=== PATIENT | male | born 1975 | race Caucasian/White ===

== ENCOUNTER 2019-11-03 07:48 | Outpatient (RCR) | payer MEDICAID, SELFPAY | END 2019-11-10 00:01 | LOC: WOUND 07:48 | PROVIDERS: Family Provider Nurse Practitioner; Visit Provider Thoracic Surgery (Cardiothoracic Vascular Surgery) | DX: E11.621 Type 2 diabetes mellitus with foot ulcer (principal); L97.522 Non-pressure chronic ulcer of other part of left foot with fat layer exposed ==

== ENCOUNTER 2019-11-13 05:30 | Day surgery (SDC) | payer MEDICAID, SELFPAY ==
[2019-11-12 16:57] VITALS: BMI 31.4
[2019-11-12 17:11] VITALS: BMI 29.2
[2019-11-13] VITALS (9 sets, daily range): BP systolic 120–164; BP diastolic 90–108; PULSE 88–94; RESP 14–20; TEMP 36.6–36.7; O2SAT 99–100
--- NOTE | 2019-11-13 07:15 | SUR.OPER ---
wasted all 2% lidocaine 20ml on sterile field
--- NOTE | 2019-11-13 07:33 | PM.OP ---
Operative Report Post-Operative Note: Date of procedure: 11/13/19 Preop Diagnosis: Left diabetic foot ulcer Post-op diagnosis: same Post-op Findings: Left diabetic foot wound all the way to the fascia Procedure Done: Debridement of left diabetic foot ulcer and injection of AmnioFix Implants: Injection of Amniofix Specimens removed/disposition: None Estimated blood loss (mL): 3 Complications: No immediate complication Findings: Left diabetic foot ulcer Condition: stable Disposition: same day Operative Report: Brief History: This is a pleasant 44 years old gentleman with complicated diabetic foot ulcer, well-known to me from wound care center, patient had plateaued his healing rate, so at that point I did international student counselor the patient to bring him to the OR for surgical debridement and injection of AmnioFix. Patient agreed to proceed accordingly Informed consent per chart Procedure: Left lower extremity ulcer After identifying the patient holding area, the left ower extremity was marked before the procedure by myself, patient was then taken to the operative suite, was placed in supine position, IV antibiotics were given per protocol,prep and drape of the left lower extremity was done under the usual sterile technique. Time-out was done verifying the patient's name/date of /planned procedure and destination after the procedure, all were in agreement. Started by excising the unhealthy necrotic indurated tissues of the wound all the way down to the subcutaneous tissues, and muscle layer of the ulcer, I was able excise all unhealthy tissues left lower extremity ulcer w necrotic floor Pre-debridement measurements 0.6 x 0.2 x 0.2 cm Post debridement measurements 0.9 x 0.3 x 0[address] to the fascia layer Sharp Debridement all the way to the healthier fascial layer Appropriate hemostasis followed by injection of Amniofix, Adaptic was then applied followed by Steri-Strips then dry gauze ABDs, Kerlix and Ronen wrap, Industry representatives was available for this. Patient tolerated the procedure well, count of instruments,needles and sponges were completed at the end of the procedure. Patient was then taken to the recovery area in stable condition. I was present for the whole entire procedure Furnace Roaster Tonny Circulating Nurse Iman and Conchita Huffman Coding Level of Care Code Acute License Registration Examiner for [facility] Barbie
--- NOTE | 2019-11-13 08:29 | P.OP_ITS ---
Operative Report Post-Operative Note: Date of procedure: 11/13/19 Coding Level of Care Code Acute Double Surface Operator for Jameson Valentin
== END 2019-11-13 07:57 | disposition home or self-care (01) ==
PROVIDERS: Family Provider Nurse Practitioner; PCP Nurse Practitioner; Visit Provider Surgery
PROC: (CPT 11043; principal; 2019-11-13 07:00)
DX: E11.621 Type 2 diabetes mellitus with foot ulcer (principal); S91.302A Unspecified open wound, left foot, initial encounter; X58.XXXA Exposure to other specified factors, initial encounter; F17.210 Nicotine dependence, cigarettes, uncomplicated; E11.42 Type 2 diabetes mellitus with diabetic polyneuropathy
CPT/HCPCS: 11043; 96365; J0690

== ENCOUNTER 2019-11-27 07:56 | Outpatient (RCR) | payer MEDICAID, SELFPAY | END 2019-12-11 23:59 | disposition home or self-care (01) | LOC: WOUND 07:56 | PROVIDERS: Family Provider Nurse Practitioner; PCP Nurse Practitioner; Visit Provider Surgery | DX: E11.621 Type 2 diabetes mellitus with foot ulcer (principal); L97.522 Non-pressure chronic ulcer of other part of left foot with fat layer exposed; I96 Gangrene, not elsewhere classified | CPT/HCPCS: 11042; 99212 ==

== ENCOUNTER → 2020-01-15 09:39 | Outpatient (BNVA) | payer MEDICAID, SELFPAY | PROVIDERS: Family Provider Nurse Practitioner; PCP Nurse Practitioner; Visit Provider Nurse Practitioner | DX: E13.621 Other specified diabetes mellitus with foot ulcer (principal); F17.200 Nicotine dependence, unspecified, uncomplicated; L97.509 Non-pressure chronic ulcer of other part of unspecified foot with unspecified severity | CPT/HCPCS: 80048; 82044; 83036 ==

== ENCOUNTER 2020-02-11 09:08 | Outpatient (CLI) | payer MEDICAID, SELFPAY ==
--- NOTE | 2020-02-11 09:19 | XR_ITS ---
WS: [id number] FOOT LEFT TECHNIQUE: 3 views of the left foot CLINICAL INFORMATION: PAIN, REDNESS, NON HEALING ULCER COMPARISON: July 20, 2019 FINDINGS: Mild soft tissue edema left great toe. Small amount of lucency and irregularity distal phalanx tuft. This may represent a tiny amount of developing osteomyelitis. Previously described osteolysis involvi ng the distal pharynx has improved since July 20, 2019. Achilles calcaneal spurring. XR/XR foot LT min 3V* [id number] IMPRESSION: Soft tissue edema first toe with a tiny amount of bony irregularity distal tuft . This may represent a small amount of developing osteomyelitis and can be furt her evaluated with MRI.
== END 2020-02-11 09:09 | disposition home or self-care (01) ==
LOC: RADWPI 09:15
PROVIDERS: Family Provider Nurse Practitioner; PCP Nurse Practitioner; Visit Provider Nurse Practitioner Family
DX: L81.9 Disorder of pigmentation, unspecified (principal); R60.9 Edema, unspecified; E11.621 Type 2 diabetes mellitus with foot ulcer; L97.522 Non-pressure chronic ulcer of other part of left foot with fat layer exposed
CPT/HCPCS: 11042; 73630; G0463

== ENCOUNTER 2020-02-15 17:52 | Outpatient (CLI) | payer MEDICAID, SELFPAY ==
[2020-02-15 18:48] LABS: Hematocrit 40.1 % (42.0-52.0); Hemoglobin 13.8 g/dL (11.7-16.6); Mean Corpuscular HGB Conc 34.4 g/dL (30.0-36.0); Mean Corpuscular Hemoglobin 31.8 pg (28.0-34.0); Mean Corpuscular Volume 92.4 fL (80-94); Mean Platelet Volume 11.7 fL (7.4-10.4); Platelet Count 248 10^3/cmm (130-400); Red Blood Count 4.34 10^6/uL (4.1-5.3); Red Cell Distribution Width 12.3 % (12.1-15.1); White Blood Count 7.1 10^3/uL (4.0-10.0)
[2020-02-15 19:59] LABS: Alanine Aminotransferase 18 U/L (0-41); Alkaline Phosphatase 75 IU/L (40-130); Anion Gap 16.4 (5-19); Aspartate Amino Transferase 20 U/L (0-40); Blood Urea Nitrogen 14 mg/dL (6-20); C Reactive Protein 9.9 mg/L (0.0-4.9); Calcium 9.7 mg/dL (8.5-10.5); Carbon Dioxide 25 mmol/L (22-29); Chloride 101 mmol/L (98-107); Globulin 3.7 g/dL (1.3-4.6); Glucose 107 mg/dL (65-115); Osmolality Calculated 283 mOsm/kg (285-295); Potassium 4.4 mmol/L (3.5-5.1); Sodium 138 mmol/L (136-145); Total Bilirubin 0.2 mg/dL (0.15-1.2); Total Protein 7.7 g/dL (6.6-8.7); Vancomycin Trough 22.8 ug/mL (10-15)
[2020-02-15 20:16] LABS: Absolute Eosinophils 0.1 10^3/cmm (0.0-0.7); Absolute Segmented Neutrophil 4.4 10/cmm (1.6-7.1); Eosinophils 2 %; Lymphocytes 34 %; Monocytes Absolute 0.1 10^3/cmm (0.1-0.6); Segmented Neutrophils 62 %; Total Cells Counted 100 (0-100)
[2020-02-15 20:18] LABS: Platelet Estimate Normal (Normal)
[2020-02-15 20:22] LABS: Erythrocyte Sedimentation Rate 18 mm/hr (0-10)
== END 2020-02-15 17:53 | disposition home or self-care (01) ==
LOC: LAB 17:54
PROVIDERS: Family Provider Nurse Practitioner; PCP Nurse Practitioner; Visit Provider Surgery
DX: M79.672 Pain in left foot (principal)
CPT/HCPCS: 80053; 80202; 85007; 85027; 85651; 86140

== ENCOUNTER 2020-02-22 18:14 | Outpatient (REF) | payer MEDICAID, SELFPAY | END 2020-02-22 18:15 | disposition home or self-care (01) | LOC: LAB 18:14 | PROVIDERS: Family Provider Nurse Practitioner; PCP Nurse Practitioner; Visit Provider Surgery | DX: M86.9 Osteomyelitis, unspecified (principal) | CPT/HCPCS: 80202; 99214; G0463 ==

== ENCOUNTER 2020-03-07 18:10 | Outpatient (CLI) | payer MEDICAID, SELFPAY ==
[2020-03-07 19:56] LABS: Basophils # 0.1 10^3/uL (0.0-0.1); Basophils % 0.6 %; Eosinophils # 0.4 10^3/uL (0.0-0.8); Eosinophils % 4.3 %; Hematocrit 39.6 % (42.0-52.0); Hemoglobin 13.4 g/dL (11.7-16.6); Lymphocytes # 2.4 10^3/uL (0.8-4.8); Lymphocytes % 29.1 %; Mean Corpuscular HGB Conc 33.8 g/dL (30.0-36.0); Mean Corpuscular Hemoglobin 31.5 pg (28.0-34.0); Mean Corpuscular Volume 93.2 fL (80-94); Mean Platelet Volume 11.6 fL (7.4-10.4); Monocytes # 0.8 10^3/uL (0.2-0.9); Monocytes % 9.1 %; Neutrophils # 4.6 10^3/uL (1.8-7.7); Neutrophils % 56.5 %; Nucleated Red Blood Cells % 0 %; Platelet Count 249 10^3/cmm (130-400); Red Blood Count 4.25 10^6/uL (4.1-5.3); Red Cell Distribution Width 12.4 % (12.1-15.1); White Blood Count 8.2 10^3/uL (4.0-10.0)
[2020-03-07 23:00] LABS: Alanine Aminotransferase 34 U/L (0-41); Albumin Level 3.9 g/dL (3.5-5.2); Alkaline Phosphatase 78 IU/L (40-130); Anion Gap 15.5 (5-19); Aspartate Amino Transferase 21 U/L (0-40); Blood Urea Nitrogen 17 mg/dL (6-20); Calcium 9.7 mg/dL (8.5-10.5); Carbon Dioxide 27 mmol/L (22-29); Chloride 101 mmol/L (98-107); Globulin 3.6 g/dL (1.3-4.6); Glomerular Filtration Rate 123.1 mL/min (90-130); Glucose 175 mg/dL (65-115); Osmolality Calculated 289 mOsm/kg (285-295); Potassium 4.5 mmol/L (3.5-5.1); Sodium 139 mmol/L (136-145); Total Bilirubin 0.2 mg/dL (0.15-1.2); Total Protein 7.5 g/dL (6.6-8.7); Vancomycin Trough 21.4 ug/mL (10-15)
== END 2020-03-07 18:11 | disposition home or self-care (01) ==
LOC: LAB 18:12
PROVIDERS: Family Provider Nurse Practitioner; Visit Provider Surgery
DX: M86.60 Other chronic osteomyelitis, unspecified site (principal)
CPT/HCPCS: 80053; 80202; 85025

== ENCOUNTER 2020-03-10 07:47 | Outpatient (RCR) | payer MEDICAID, SELFPAY ==
--- NOTE | 2020-02-12 08:55 | XR_ITS ---
WS: [id number] PORTABLE CHEST HISTORY: PICC PLACEMENT COMPARISON: 07/30/2019 RIGHT PICC line is been placed with tip in the mid SVC. No complications. Lungs are clear and well expanded. No pleural effusion or pneumothorax. Cardiac size: Normal. Mediastinum/Aorta: Normal mediastinum. No osseous abnormality seen. XR/XR chest 1V portable [id number] IMPRESSION: Satisfactory placement right-sided PICC line.
[2020-02-12 09:26] LABS: Basophils % 0.5 %; Eosinophils # 0.1 10^3/uL (0.0-0.8); Eosinophils % 1.4 %; Hematocrit 40.6 % (42.0-52.0); Hemoglobin 13.9 g/dL (11.7-16.6); Lymphocytes # 1.3 10^3/uL (0.8-4.8); Lymphocytes % 16.2 %; Mean Corpuscular HGB Conc 34.2 g/dL (30.0-36.0); Mean Corpuscular Hemoglobin 31.2 pg (28.0-34.0); Mean Platelet Volume 10.8 fL (7.4-10.4); Monocytes # 0.7 10^3/uL (0.2-0.9); Neutrophils # 5.6 10^3/uL (1.8-7.7); Neutrophils % 72.6 %; Nucleated Red Blood Cells % 0 %; Platelet Count 208 10^3/cmm (130-400); Red Blood Count 4.46 10^6/uL (4.1-5.3); Red Cell Distribution Width 12.3 % (12.1-15.1); White Blood Count 7.8 10^3/uL (4.0-10.0)
[2020-02-12 09:40] LABS: Alanine Aminotransferase 15 U/L (0-41); Albumin Level 3.9 g/dL (3.5-5.2); Alkaline Phosphatase 71 IU/L (40-130); Anion Gap 16.4 (5-19); Aspartate Amino Transferase 15 U/L (0-40); Blood Urea Nitrogen 12 mg/dL (6-20); C Reactive Protein 71.2 mg/L (0.0-4.9); Calcium 9.5 mg/dL (8.5-10.5); Carbon Dioxide 25 mmol/L (22-29); Chloride 99 mmol/L (98-107); Creatinine Clr Calc Pharmacy 148.9893; Glomerular Filtration Rate 105.5 mL/min (90-130); Glucose 184 mg/dL (65-115); Osmolality Calculated 283 mOsm/kg (285-295); Potassium 4.4 mmol/L (3.5-5.1); Sodium 136 mmol/L (136-145); Total Bilirubin 0.4 mg/dL (0.15-1.2); Total Protein 6.9 g/dL (6.6-8.7)
[2020-02-12 09:56] VITALS: BP 127/88; PULSE 90; RESP 18; TEMP 37.3; O2SAT 99; BMI 31.3
[2020-02-12 10:03] LABS: Prealbumin 18.7 mg/dL (20-40)
[2020-02-12 10:24] LABS: Erythrocyte Sedimentation Rate 22 mm/hr (0-10)
--- NOTE | 2020-02-12 11:33 | ECG_ITS ---
Measurements Intervals Deane Rate: 95 P: 114 SD: 149 QRS: 214 QRSD: 99 T: 141 QT: 337 QTc: 424 SINUS RHYTHM ARM LEADS REVERSED [INVERTED P AND QRS IN I] ATYPICAL ECG WARNING: DATA QUALITY MAY AFFECT INTERPRETATION No previous ECG available for comparison Electronically Signed On 02-12-2020 13:42:32 CDT by Cherie Jacobs M.D. [email or web address]
--- NOTE | 2020-02-12 11:33 | XR_ITS ---
WS: [id number] CHEST 2 VIEWS HISTORY: Possible bullous lung disease. COMPARISON: 02/12/2020, 07/30/2019 Lungs: Lungs are hyperinflated. No focal bullous disease is identified. There are no lucencies or cys tic areas seen. No pneumonia. Cardiac size: Normal. Mediastinum/Aorta: Normal mediastinum. Bones: Mild RIGHT convex curvature thoracic spine. RIGHT PICC line remains in good position. XR/XR chest 2V* [id number] IMPRESSION: 1. No bullous lung disease appreciated by radiograph. 2. Right-sided PICC line in good position.
--- NOTE | 2020-02-17 08:42 | USCV_ITS ---
Joe Child Age: 44 Gender: M : 1975 Exam Date: 02/17/2020 09:18 Ordering Phys: Adilene Mg Technologist: Kaye Chawla [place] [facility] [place]: HISTORY: Non healing wound lt foot PROCEDURES: Venous duplex imaging was performed in only the left lower extremity. The following venous structures were evaluated: common femoral vein,, portion of the greater saphenous vein, superficial femoral vein, and the popliteal vein ptv and ssv FINDINGS: No DVT or superficial thrombus noted in any vessel examined No reflux noted in any vessel examined CONCLUSIONS No evidence of DVT in the above-mentioned identifiable veins. No significant venous reflux in the above-mentioned veins on the left side. The venous dimensions and the depth from the surface are as mentioned above Dr Tyrell Sargent MD [facility] (Electronically Signed) Final Date: 17 February 2020 17:20 S
--- NOTE | 2020-02-19 15:37 | USCV_ITS ---
Joe Child Age: 44 Gender: M : 1975 Exam Date: 02/19/2020 15:30 Ordering Phys: Adilene Mg Technologist: Exam Location: [facility] [place] Indication: ULCERS OF LT FOOT RIGHT LEFT Brachial mmHg Brachial 144.00 mmHg Pressure (mmHg) Waveform Pressure (mmHg) Waveform Above Knee 162.00 Below Knee 154.00 TECHNICAL ASSOCIATE 160.00 DPA 152.00 Ankle/Brachial Index 1.11 Pre-Exercise Toe Pressure 112.00 Pre-Exercise Toe/Brachial Index 0.78 FINDINGS Unable to take right brachial due to picc line. Normal resting TAYLOR on the left side Normal resting TBI on the left side Normal PVR waveforms CONCLUSIONS No significant arterial obstruction, based on the above findings, in the left lower extremity Dr Tyrell Sargent MD [facility] (Electronically Signed) Final Date: 19 February 2020 16:53 S
[2020-02-29 20:27] LABS: Alanine Aminotransferase 23 U/L (0-41); Alkaline Phosphatase 72 IU/L (40-130); Anion Gap 21.6 (5-19); Aspartate Amino Transferase 20 U/L (0-40); Blood Urea Nitrogen 19 mg/dL (6-20); Calcium 9.8 mg/dL (8.5-10.5); Carbon Dioxide 26 mmol/L (22-29); Chloride 97 mmol/L (98-107); Globulin 3.6 g/dL (1.3-4.6); Glomerular Filtration Rate 123.1 mL/min (90-130); Glucose 142 mg/dL (65-115); Osmolality Calculated 291 mOsm/kg (285-295); Potassium 3.6 mmol/L (3.5-5.1); Sodium 141 mmol/L (136-145); Total Bilirubin 0.2 mg/dL (0.15-1.2); Total Protein 7.6 g/dL (6.6-8.7); Vancomycin Trough 24.6 ug/mL (10-15)
[2020-02-29 21:02] LABS: Basophils # 0.1 10^3/uL (0.0-0.1); Basophils % 0.9 %; Eosinophils # 0.3 10^3/uL (0.0-0.8); Eosinophils % 3.6 %; Hematocrit 41.8 % (42.0-52.0); Hemoglobin 13.2 g/dL (11.7-16.6); Lymphocytes # 2.5 10^3/uL (0.8-4.8); Lymphocytes % 30.7 %; Mean Corpuscular HGB Conc 31.6 g/dL (30.0-36.0); Mean Corpuscular Hemoglobin 30.3 pg (28.0-34.0); Mean Corpuscular Volume 96.1 fL (80-94); Mean Platelet Volume 11.1 fL (7.4-10.4); Monocytes # 0.6 10^3/uL (0.2-0.9); Monocytes % 7.8 %; Neutrophils # 4.7 10^3/uL (1.8-7.7); Neutrophils % 56.8 %; Nucleated Red Blood Cells % 0 %; Platelet Count 253 10^3/cmm (130-400); Red Blood Count 4.35 10^6/uL (4.1-5.3); Red Cell Distribution Width 12.8 % (12.1-15.1); White Blood Count 8.2 10^3/uL (4.0-10.0)
[2020-03-01 00:15] LABS: Erythrocyte Sedimentation Rate 9 mm/hr (0-10)
== END 2020-03-10 23:59 | disposition home or self-care (01) ==
LOC: WOUND 07:47
PROVIDERS: Emergency Medicine; Family Provider Nurse Practitioner; PCP Nurse Practitioner; Visit Provider Nurse Practitioner Family
DX: R94.31 Abnormal electrocardiogram [ECG] [EKG] (principal); E11.621 Type 2 diabetes mellitus with foot ulcer; L97.522 Non-pressure chronic ulcer of other part of left foot with fat layer exposed; M86.672 Other chronic osteomyelitis, left ankle and foot; Z13.83 Encounter for screening for respiratory disorder NEC; M79.672 Pain in left foot
CPT/HCPCS: 11042; 36569; 71045; 71046; 80053; 80202; 84134; 85025; 85651; 86140; 87070; 87205; 93005; 93922; 93971; 96365; 99183; 99211; G0277; J3370; J7040

== ENCOUNTER 2020-03-11 08:10 | Outpatient (CLI) | payer MEDICAID, SELFPAY | END 2020-03-11 08:11 | disposition home or self-care (01) | LOC: WOUND 08:11 | PROVIDERS: Family Provider Nurse Practitioner; PCP Nurse Practitioner; Visit Provider Surgery | DX: M86.672 Other chronic osteomyelitis, left ankle and foot (principal) | CPT/HCPCS: 99183 ==

== ENCOUNTER 2020-03-14 07:52 | Outpatient (CLI) | payer MEDICAID, SELFPAY | END 2020-03-14 07:53 | disposition home or self-care (01) | LOC: WOUND 13:18 | PROVIDERS: Family Provider Nurse Practitioner; PCP Nurse Practitioner; Visit Provider Emergency Medicine | DX: M86.672 Other chronic osteomyelitis, left ankle and foot (principal) | CPT/HCPCS: 99183 ==

== ENCOUNTER 2020-03-14 20:10 | Outpatient (CLI) | payer MEDICAID, SELFPAY ==
[2020-03-14 22:19] LABS: Basophils # 0.1 10^3/uL (0.0-0.1); Basophils % 0.7 %; Eosinophils # 0.3 10^3/uL (0.0-0.8); Eosinophils % 3.4 %; Hematocrit 39.5 % (42.0-52.0); Hemoglobin 13.3 g/dL (11.7-16.6); Mean Corpuscular HGB Conc 33.7 g/dL (30.0-36.0); Mean Corpuscular Hemoglobin 30.7 pg (28.0-34.0); Mean Corpuscular Volume 91.2 fL (80-94); Mean Platelet Volume 11.6 fL (7.4-10.4); Monocytes # 0.8 10^3/uL (0.2-0.9); Neutrophils # 5.4 10^3/uL (1.8-7.7); Neutrophils % 56.5 %; Nucleated Red Blood Cells % 0 %; Platelet Count 244 10^3/cmm (130-400); Red Blood Count 4.33 10^6/uL (4.1-5.3); White Blood Count 9.5 10^3/uL (4.0-10.0)
[2020-03-14 22:32] LABS: Alanine Aminotransferase 28 U/L (0-41); Albumin Level 3.8 g/dL (3.5-5.2); Alkaline Phosphatase 70 IU/L (40-130); Anion Gap 15.5 (5-19); Blood Urea Nitrogen 18 mg/dL (6-20); Calcium 9.4 mg/dL (8.5-10.5); Carbon Dioxide 27 mmol/L (22-29); Chloride 101 mmol/L (98-107); Globulin 3.5 g/dL (1.3-4.6); Glomerular Filtration Rate 92.1 mL/min (90-130); Glucose 158 mg/dL (65-115); Osmolality Calculated 288 mOsm/kg (285-295); Potassium 4.5 mmol/L (3.5-5.1); Sodium 139 mmol/L (136-145); Total Bilirubin 0.2 mg/dL (0.15-1.2); Total Protein 7.3 g/dL (6.6-8.7); Vancomycin Trough 15.9 ug/mL (10-15)
[2020-03-14 22:53] LABS: Aspartate Amino Transferase 21 U/L (0-40)
== END 2020-03-14 20:11 | disposition home or self-care (01) ==
LOC: LAB 20:12
PROVIDERS: Family Provider Nurse Practitioner; PCP Nurse Practitioner; Visit Provider Surgery
DX: E11.9 Type 2 diabetes mellitus without complications (principal); M86.60 Other chronic osteomyelitis, unspecified site
CPT/HCPCS: 80053; 80202; 85025

== ENCOUNTER 2020-03-15 08:01 | Outpatient (CLI) | payer MEDICAID, SELFPAY | END 2020-03-15 08:02 | disposition home or self-care (01) | LOC: WOUND 08:01 | PROVIDERS: Family Provider Nurse Practitioner; PCP Nurse Practitioner; Visit Provider Thoracic Surgery (Cardiothoracic Vascular Surgery) | DX: M86.672 Other chronic osteomyelitis, left ankle and foot (principal) | CPT/HCPCS: 99183 ==

== ENCOUNTER 2020-03-16 07:48 | Outpatient (CLI) | payer MEDICAID, SELFPAY | END 2020-03-16 07:49 | disposition home or self-care (01) | LOC: WOUND 07:49 | PROVIDERS: Family Provider Nurse Practitioner; PCP Nurse Practitioner; Visit Provider Thoracic Surgery (Cardiothoracic Vascular Surgery) | DX: M86.672 Other chronic osteomyelitis, left ankle and foot (principal) | CPT/HCPCS: 99183 ==

== ENCOUNTER 2020-03-17 07:42 | Outpatient (CLI) | payer MEDICAID, SELFPAY | END 2020-03-17 07:43 | disposition home or self-care (01) | LOC: WOUND 07:42 | PROVIDERS: Family Provider Nurse Practitioner; PCP Nurse Practitioner; Visit Provider Nurse Practitioner Family | DX: M86.672 Other chronic osteomyelitis, left ankle and foot (principal) | CPT/HCPCS: 99183 ==

== ENCOUNTER 2020-03-18 08:09 | Outpatient (CLI) | payer MEDICAID, SELFPAY | END 2020-03-18 08:10 | disposition home or self-care (01) | LOC: WOUND 08:10 | PROVIDERS: Family Provider Nurse Practitioner; PCP Nurse Practitioner; Visit Provider Surgery | DX: M86.672 Other chronic osteomyelitis, left ankle and foot (principal) | CPT/HCPCS: 99183 ==

== ENCOUNTER 2020-03-21 07:50 | Outpatient (RCR) | payer MEDICAID, SELFPAY | END 2020-04-10 23:59 | disposition home or self-care (01) | LOC: WOUND 07:50 | PROVIDERS: Family Provider Nurse Practitioner; PCP Nurse Practitioner; Visit Provider Nurse Practitioner Family | DX: M86.672 Other chronic osteomyelitis, left ankle and foot (principal) | CPT/HCPCS: 99183 ==

== ENCOUNTER 2020-03-21 18:30 | Outpatient (CLI) | payer MEDICAID, SELFPAY ==
[2020-03-21 19:55] LABS: Basophils # 0.1 10^3/uL (0.0-0.1); Basophils % 0.7 %; Eosinophils # 0.3 10^3/uL (0.0-0.8); Eosinophils % 3.2 %; Hematocrit 37.5 % (42.0-52.0); Hemoglobin 12.7 g/dL (11.7-16.6); Lymphocytes # 2.7 10^3/uL (0.8-4.8); Lymphocytes % 30.9 %; Mean Corpuscular HGB Conc 33.9 g/dL (30.0-36.0); Mean Corpuscular Hemoglobin 30.8 pg (28.0-34.0); Mean Platelet Volume 11.5 fL (7.4-10.4); Monocytes # 0.8 10^3/uL (0.2-0.9); Monocytes % 8.8 %; Neutrophils # 4.9 10^3/uL (1.8-7.7); Neutrophils % 56.2 %; Nucleated Red Blood Cells % 0 %; Platelet Count 233 10^3/cmm (130-400); Red Blood Count 4.12 10^6/uL (4.1-5.3); Red Cell Distribution Width 12.1 % (12.1-15.1); White Blood Count 8.6 10^3/uL (4.0-10.0)
[2020-03-22 01:55] LABS: Alanine Aminotransferase 30 U/L (0-41); Albumin Level 4.2 g/dL (3.5-5.2); Alkaline Phosphatase 66 IU/L (40-130); Anion Gap 16.2 (5-19); Aspartate Amino Transferase 19 U/L (0-40); Blood Urea Nitrogen 21 mg/dL (6-20); Calcium 8.8 mg/dL (8.5-10.5); Carbon Dioxide 25 mmol/L (22-29); Chloride 101 mmol/L (98-107); Globulin 2.8 g/dL (1.3-4.6); Glomerular Filtration Rate 105.5 mL/min (90-130); Glucose 165 mg/dL (65-115); Osmolality Calculated 286 mOsm/kg (285-295); Potassium 4.2 mmol/L (3.5-5.1); Sodium 138 mmol/L (136-145); Total Bilirubin 0.2 mg/dL (0.15-1.2); Vancomycin Trough 16.4 ug/mL (10-15)
== END 2020-03-21 18:31 | disposition home or self-care (01) ==
LOC: LAB 18:33
PROVIDERS: PCP Nurse Practitioner; Visit Provider Surgery
DX: E11.9 Type 2 diabetes mellitus without complications (principal); M86.8X7 Other osteomyelitis, ankle and foot
CPT/HCPCS: 80053; 80202; 85025

== ENCOUNTER 2020-03-22 07:45 | Outpatient (CLI) | payer MEDICAID, SELFPAY | END 2020-03-22 07:46 | disposition home or self-care (01) | LOC: WOUND 07:46 | PROVIDERS: PCP Nurse Practitioner; Visit Provider Thoracic Surgery (Cardiothoracic Vascular Surgery) | DX: M86.672 Other chronic osteomyelitis, left ankle and foot (principal) | CPT/HCPCS: 99183 ==

== ENCOUNTER 2020-03-23 08:28 | Outpatient (CLI) | payer MEDICAID, SELFPAY | END 2020-03-23 08:29 | disposition home or self-care (01) | LOC: WOUND 08:29 | PROVIDERS: PCP Nurse Practitioner; Visit Provider Thoracic Surgery (Cardiothoracic Vascular Surgery) | DX: M86.672 Other chronic osteomyelitis, left ankle and foot (principal) | CPT/HCPCS: G0277 ==

== ENCOUNTER 2020-03-24 07:55 | Outpatient (CLI) | payer MEDICAID, SELFPAY | END 2020-03-24 07:56 | disposition home or self-care (01) | LOC: WOUND 07:55 | PROVIDERS: PCP Nurse Practitioner; Visit Provider Nurse Practitioner Family | DX: M86.672 Other chronic osteomyelitis, left ankle and foot (principal) | CPT/HCPCS: 99183 ==

== ENCOUNTER 2020-03-25 07:42 | Outpatient (CLI) | payer MEDICAID, SELFPAY | END 2020-03-25 07:43 | disposition home or self-care (01) | LOC: WOUND 07:42 | PROVIDERS: PCP Nurse Practitioner; Visit Provider Surgery | DX: M86.672 Other chronic osteomyelitis, left ankle and foot (principal) | CPT/HCPCS: 99183 ==

== ENCOUNTER 2020-03-28 07:47 | Outpatient (CLI) | payer MEDICAID, SELFPAY | END 2020-03-28 07:48 | disposition home or self-care (01) | LOC: WOUND 07:48 | PROVIDERS: PCP Nurse Practitioner; Visit Provider Nurse Practitioner Family | DX: M86.672 Other chronic osteomyelitis, left ankle and foot (principal) | CPT/HCPCS: 99183; 99212 ==

== ENCOUNTER 2020-03-29 08:25 | Outpatient (CLI) | payer MEDICAID, SELFPAY | END 2020-03-29 08:26 | disposition home or self-care (01) | LOC: WOUND 08:26 | PROVIDERS: PCP Nurse Practitioner; Visit Provider Thoracic Surgery (Cardiothoracic Vascular Surgery) | DX: M86.672 Other chronic osteomyelitis, left ankle and foot (principal) | CPT/HCPCS: 99183 ==

== ENCOUNTER 2020-03-30 07:56 | Outpatient (CLI) | payer MEDICAID, SELFPAY | END 2020-03-30 07:57 | disposition home or self-care (01) | LOC: WOUND 07:57 | PROVIDERS: PCP Nurse Practitioner; Visit Provider Thoracic Surgery (Cardiothoracic Vascular Surgery) | DX: M86.672 Other chronic osteomyelitis, left ankle and foot (principal) | CPT/HCPCS: 99183 ==

== ENCOUNTER 2020-03-31 07:48 | Outpatient (CLI) | payer MEDICAID, SELFPAY | END 2020-03-31 07:49 | disposition home or self-care (01) | LOC: WOUND 07:49 | PROVIDERS: PCP Nurse Practitioner; Visit Provider Nurse Practitioner Family | DX: M86.672 Other chronic osteomyelitis, left ankle and foot (principal) | CPT/HCPCS: 99183 ==

== ENCOUNTER 2020-04-01 07:58 | Outpatient (RCR) | payer MEDICAID, SELFPAY | END 2020-04-10 23:59 | disposition home or self-care (01) | LOC: WOUND 07:58 | PROVIDERS: PCP Nurse Practitioner; Visit Provider Surgery | DX: M86.672 Other chronic osteomyelitis, left ankle and foot (principal) | CPT/HCPCS: 99183 ==

== ENCOUNTER 2020-04-05 07:58 | Outpatient (CLI) | payer MEDICAID, SELFPAY | END 2020-04-05 07:59 | disposition home or self-care (01) | LOC: WOUND 07:58 | PROVIDERS: PCP Nurse Practitioner; Visit Provider Thoracic Surgery (Cardiothoracic Vascular Surgery) | DX: M86.672 Other chronic osteomyelitis, left ankle and foot (principal) | CPT/HCPCS: 99183 ==

== ENCOUNTER 2020-04-07 08:20 | Outpatient (CLI) | payer MEDICAID, SELFPAY | END 2020-04-07 08:21 | disposition home or self-care (01) | LOC: WOUND 08:20 | PROVIDERS: PCP Nurse Practitioner; Visit Provider Nurse Practitioner Family | DX: M86.672 Other chronic osteomyelitis, left ankle and foot (principal) | CPT/HCPCS: 99183 ==

== ENCOUNTER 2020-04-08 07:50 | Outpatient (CLI) | payer MEDICAID, SELFPAY | END 2020-04-08 07:51 | disposition home or self-care (01) | LOC: WOUND 07:51 | PROVIDERS: PCP Nurse Practitioner; Visit Provider Surgery | DX: M86.672 Other chronic osteomyelitis, left ankle and foot (principal) | CPT/HCPCS: 99183 ==

== ENCOUNTER 2020-04-11 07:44 | Outpatient (CLI) | payer MEDICAID, SELFPAY | END 2020-04-11 07:45 | disposition home or self-care (01) | LOC: WOUND 07:44 | PROVIDERS: Family Provider Nurse Practitioner; PCP Nurse Practitioner; Visit Provider Nurse Practitioner Family | DX: M86.672 Other chronic osteomyelitis, left ankle and foot (principal) | CPT/HCPCS: 99183; 99212 ==

== ENCOUNTER 2020-04-12 07:53 | Outpatient (CLI) | payer MEDICAID, SELFPAY | END 2020-04-12 07:54 | disposition home or self-care (01) | LOC: WOUND 07:53 | PROVIDERS: Family Provider Nurse Practitioner; PCP Nurse Practitioner; Visit Provider Thoracic Surgery (Cardiothoracic Vascular Surgery) | DX: M86.672 Other chronic osteomyelitis, left ankle and foot (principal) | CPT/HCPCS: 99183 ==

== ENCOUNTER 2020-04-13 07:46 | Outpatient (CLI) | payer MEDICAID, SELFPAY | END 2020-04-13 07:47 | disposition home or self-care (01) | LOC: WOUND 07:47 | PROVIDERS: Absent Provider Thoracic Surgery (Cardiothoracic Vascular Surgery); Family Provider Nurse Practitioner; PCP Nurse Practitioner; Visit Provider Thoracic Surgery (Cardiothoracic Vascular Surgery) | DX: M86.672 Other chronic osteomyelitis, left ankle and foot (principal) | CPT/HCPCS: 99183 ==

== ENCOUNTER 2020-04-14 07:47 | Outpatient (CLI) | payer MEDICAID, SELFPAY | END 2020-04-14 07:48 | disposition home or self-care (01) | LOC: WOUND 07:47 | PROVIDERS: Family Provider Nurse Practitioner; PCP Nurse Practitioner; Visit Provider Nurse Practitioner Family | DX: M86.672 Other chronic osteomyelitis, left ankle and foot (principal) | CPT/HCPCS: 99183 ==

== ENCOUNTER 2020-04-15 07:42 | Outpatient (CLI) | payer MEDICAID, SELFPAY | END 2020-04-15 07:43 | disposition home or self-care (01) | LOC: WOUND 07:43 | PROVIDERS: Family Provider Nurse Practitioner; PCP Nurse Practitioner; Visit Provider Surgery | DX: M86.672 Other chronic osteomyelitis, left ankle and foot (principal) | CPT/HCPCS: 99183 ==

== ENCOUNTER 2020-04-18 07:48 | Outpatient (CLI) | payer MEDICAID, SELFPAY | END 2020-04-18 07:49 | disposition home or self-care (01) | LOC: WOUND 07:48 | PROVIDERS: Family Provider Nurse Practitioner; PCP Nurse Practitioner; Visit Provider Nurse Practitioner Family | DX: M86.672 Other chronic osteomyelitis, left ankle and foot (principal) | CPT/HCPCS: 99183 ==

== ENCOUNTER 2020-04-19 07:42 | Outpatient (CLI) | payer MEDICAID, SELFPAY | END 2020-04-19 07:43 | disposition home or self-care (01) | LOC: WOUND 07:42 | PROVIDERS: Family Provider Nurse Practitioner; PCP Nurse Practitioner; Visit Provider Thoracic Surgery (Cardiothoracic Vascular Surgery) | DX: M86.672 Other chronic osteomyelitis, left ankle and foot (principal) | CPT/HCPCS: 99183 ==

== ENCOUNTER 2020-04-20 07:48 | Outpatient (RCR) | payer MEDICAID, SELFPAY | END 2020-05-10 23:59 | disposition home or self-care (01) | LOC: WOUND 07:48 | PROVIDERS: Family Provider Nurse Practitioner; PCP Nurse Practitioner; Visit Provider Thoracic Surgery (Cardiothoracic Vascular Surgery) | DX: M86.672 Other chronic osteomyelitis, left ankle and foot (principal) | CPT/HCPCS: 99183 ==

== ENCOUNTER 2020-04-21 07:43 | Outpatient (CLI) | payer MEDICAID, SELFPAY | END 2020-04-21 07:44 | disposition home or self-care (01) | LOC: WOUND 07:43 | PROVIDERS: Family Provider Nurse Practitioner; PCP Nurse Practitioner; Visit Provider Nurse Practitioner Family | DX: M86.672 Other chronic osteomyelitis, left ankle and foot (principal) | CPT/HCPCS: 99183 ==

== ENCOUNTER 2020-04-22 07:45 | Outpatient (CLI) | payer MEDICAID, SELFPAY | END 2020-04-22 07:46 | disposition home or self-care (01) | LOC: WOUND 07:46 | PROVIDERS: Family Provider Nurse Practitioner; PCP Nurse Practitioner; Visit Provider Nurse Practitioner Family | DX: M86.672 Other chronic osteomyelitis, left ankle and foot (principal) | CPT/HCPCS: 99183 ==

== ENCOUNTER 2020-04-25 08:31 | Outpatient (CLI) | payer MEDICAID, SELFPAY | END 2020-04-25 08:32 | disposition home or self-care (01) | LOC: WOUND 08:32 | PROVIDERS: Family Provider Nurse Practitioner; PCP Nurse Practitioner; Visit Provider Nurse Practitioner Family | DX: M86.672 Other chronic osteomyelitis, left ankle and foot (principal) | CPT/HCPCS: 99183; 99212 ==

== ENCOUNTER 2020-04-26 07:39 | Outpatient (CLI) | payer MEDICAID, SELFPAY | END 2020-04-26 07:40 | disposition home or self-care (01) | LOC: WOUND 07:40 | PROVIDERS: Family Provider Nurse Practitioner; PCP Nurse Practitioner; Visit Provider Thoracic Surgery (Cardiothoracic Vascular Surgery) | DX: M86.672 Other chronic osteomyelitis, left ankle and foot (principal) | CPT/HCPCS: 99183 ==

== ENCOUNTER 2020-04-27 07:52 | Outpatient (CLI) | payer MEDICAID, SELFPAY | END 2020-04-27 07:53 | disposition home or self-care (01) | LOC: WOUND 07:53 | PROVIDERS: Family Provider Nurse Practitioner; PCP Nurse Practitioner; Visit Provider Thoracic Surgery (Cardiothoracic Vascular Surgery) | DX: M86.672 Other chronic osteomyelitis, left ankle and foot (principal) | CPT/HCPCS: 99183 ==

== ENCOUNTER 2020-04-28 07:57 | Outpatient (CLI) | payer MEDICAID, SELFPAY | END 2020-04-28 07:58 | disposition home or self-care (01) | LOC: WOUND 07:58 | PROVIDERS: Family Provider Nurse Practitioner; PCP Nurse Practitioner; Visit Provider Nurse Practitioner Family | DX: M86.672 Other chronic osteomyelitis, left ankle and foot (principal) | CPT/HCPCS: 99183 ==

== ENCOUNTER 2020-05-02 08:10 | Outpatient (CLI) | payer MEDICAID, SELFPAY | END 2020-05-02 08:11 | disposition home or self-care (01) | LOC: WOUND 08:12 | PROVIDERS: Family Provider Nurse Practitioner; PCP Nurse Practitioner; Visit Provider Nurse Practitioner Family | DX: Z09 Encounter for follow-up examination after completed treatment for conditions other than malignant neoplasm (principal); L84 Corns and callosities | CPT/HCPCS: 99212 ==

== ENCOUNTER 2020-05-09 11:00 | Outpatient (CLI) | payer MEDICAID, SELFPAY | END 2020-05-09 11:01 | disposition home or self-care (01) | LOC: WOUND 11:01 | PROVIDERS: Family Provider Nurse Practitioner; PCP Nurse Practitioner; Visit Provider Nurse Practitioner Family | DX: Z09 Encounter for follow-up examination after completed treatment for conditions other than malignant neoplasm (principal) | CPT/HCPCS: 99212 ==

== ENCOUNTER 2020-05-19 13:22 | Outpatient (CLI) | payer MEDICAID, SELFPAY | END 2020-05-19 13:23 | disposition home or self-care (01) | LOC: WOUND 13:23 | PROVIDERS: Family Provider Nurse Practitioner; PCP Family Medicine; Visit Provider Surgery | DX: E11.621 Type 2 diabetes mellitus with foot ulcer (principal); L97.522 Non-pressure chronic ulcer of other part of left foot with fat layer exposed | CPT/HCPCS: 11042 ==

== ENCOUNTER 2020-05-26 10:14 | Outpatient (CLI) | payer MEDICAID, SELFPAY | END 2020-05-26 10:15 | disposition home or self-care (01) | LOC: WOUND 10:15 | PROVIDERS: Family Provider Nurse Practitioner; PCP Family Medicine; Visit Provider Emergency Medicine | DX: E11.621 Type 2 diabetes mellitus with foot ulcer (principal); L97.522 Non-pressure chronic ulcer of other part of left foot with fat layer exposed | CPT/HCPCS: 11042 ==

== ENCOUNTER 2020-06-02 10:42 | Outpatient (CLI) | payer MEDICAID, SELFPAY | END 2020-06-02 10:43 | disposition home or self-care (01) | LOC: WOUND 10:52 | PROVIDERS: Family Provider Nurse Practitioner; PCP Family Medicine; Visit Provider Nurse Practitioner Family | DX: Z09 Encounter for follow-up examination after completed treatment for conditions other than malignant neoplasm (principal) | CPT/HCPCS: 99212 ==

== ENCOUNTER 2020-07-11 08:03 | Outpatient (CLI) | payer MEDICAID, SELFPAY | END 2020-07-11 08:04 | disposition home or self-care (01) | LOC: WOUND 08:03 | PROVIDERS: Family Provider Nurse Practitioner; PCP Family Medicine; Visit Provider Emergency Medicine | DX: E11.621 Type 2 diabetes mellitus with foot ulcer (principal); L97.522 Non-pressure chronic ulcer of other part of left foot with fat layer exposed | CPT/HCPCS: 11042; G0463; L3260 ==

== ENCOUNTER → 2020-07-20 08:50 | Outpatient (BNVA) | payer MEDICAID, SELFPAY | PROVIDERS: Family Provider Nurse Practitioner; PCP Family Medicine; Visit Provider Family Medicine | DX: E11.8 Type 2 diabetes mellitus with unspecified complications (principal); B02.29 Other postherpetic nervous system involvement; F17.219 Nicotine dependence, cigarettes, with unspecified nicotine-induced disorders; Z68.32 Body mass index [BMI] 32.0-32.9, adult | CPT/HCPCS: 80053; 80061; 83036 ==

== ENCOUNTER 2020-07-25 08:06 | Outpatient (CLI) | payer MEDICAID, SELFPAY | END 2020-07-25 08:07 | disposition home or self-care (01) | LOC: WOUND 08:06 | PROVIDERS: Family Provider Nurse Practitioner; PCP Family Medicine; Visit Provider Emergency Medicine | DX: Z09 Encounter for follow-up examination after completed treatment for conditions other than malignant neoplasm (principal) | CPT/HCPCS: 99212 ==

== ENCOUNTER 2020-08-08 08:08 | Outpatient (RCR) | payer MEDICAID, SELFPAY | END 2020-08-10 23:59 | disposition home or self-care (01) | LOC: WOUND 08:08 | PROVIDERS: Family Provider Nurse Practitioner; PCP Family Medicine; Visit Provider Nurse Practitioner Family | DX: E11.621 Type 2 diabetes mellitus with foot ulcer (principal); L97.522 Non-pressure chronic ulcer of other part of left foot with fat layer exposed | CPT/HCPCS: 99212 ==

== ENCOUNTER 2020-08-15 08:08 | Outpatient (CLI) | payer MEDICAID, SELFPAY | END 2020-08-15 08:09 | disposition home or self-care (01) | LOC: WOUND 08:08 | PROVIDERS: Family Provider Nurse Practitioner; PCP Family Medicine; Visit Provider Nurse Practitioner Family | DX: L84 Corns and callosities (principal) | CPT/HCPCS: 99212 ==

== ENCOUNTER 2020-08-19 12:55 | Outpatient (CLI) | payer MEDICAID, SELFPAY | END 2020-08-19 12:56 | disposition home or self-care (01) | LOC: WOUND 12:56 | PROVIDERS: Family Provider Nurse Practitioner; PCP Family Medicine; Visit Provider Surgery | DX: E11.621 Type 2 diabetes mellitus with foot ulcer (principal); L97.522 Non-pressure chronic ulcer of other part of left foot with fat layer exposed | CPT/HCPCS: 11042; L3260 ==

== ENCOUNTER 2020-08-19 14:30 | Outpatient (CLI) | payer MEDICAID, SELFPAY ==
--- NOTE | 2020-08-19 14:58 | XR_ITS ---
WS: [id number] LEFT FOOT: 3 VIEW(S) TECHNIQUE: AP, oblique and lateral. HISTORY: PAIN REDNESS NONHEALING ULCER COMPARISON: 02/11/2020 No acute fracture or dislocation. Soft tissue edema and the area of ulceration measures 2.2 cm medial to the first toe. The underlying bone is intact. No osteolysis or fracture. No foreign body. Stable cortical irregularity over the ter maty tuft of the first toe. XR/XR foot LT min 3V* [id number] IMPRESSION: Soft tissue ulceration and edema measures 2.2 cm medial to the first toe. No os teomyelitis radiographically.
== END 2020-08-19 14:31 | disposition home or self-care (01) ==
PROVIDERS: Family Provider Nurse Practitioner; PCP Family Medicine; Visit Provider Surgery
DX: M79.672 Pain in left foot (principal); L53.9 Erythematous condition, unspecified; L97.529 Non-pressure chronic ulcer of other part of left foot with unspecified severity; R60.0 Localized edema
CPT/HCPCS: 73630

== ENCOUNTER 2020-08-26 07:57 | Outpatient (CLI) | payer MEDICAID, SELFPAY | END 2020-08-26 07:58 | disposition home or self-care (01) | LOC: WOUND 07:57 | PROVIDERS: Family Provider Nurse Practitioner; PCP Family Medicine; Visit Provider Surgery | DX: Z09 Encounter for follow-up examination after completed treatment for conditions other than malignant neoplasm (principal) | CPT/HCPCS: 99212 ==

== ENCOUNTER → 2020-10-17 08:16 | Outpatient (BNVA) | payer MEDICAID, SELFPAY | PROVIDERS: Family Provider Nurse Practitioner; PCP Family Medicine; Visit Provider Family Medicine | DX: E11.8 Type 2 diabetes mellitus with unspecified complications (principal); Z13.6 Encounter for screening for cardiovascular disorders; F17.219 Nicotine dependence, cigarettes, with unspecified nicotine-induced disorders | CPT/HCPCS: 80053; 83036 ==

== ENCOUNTER → 2020-12-16 11:57 | Outpatient (BNVA) | payer MEDICAID, SELFPAY | PROVIDERS: Family Provider Nurse Practitioner; PCP Family Medicine; Visit Provider Podiatrist Foot & Ankle Surgery | DX: E13.621 Other specified diabetes mellitus with foot ulcer (principal); L97.509 Non-pressure chronic ulcer of other part of unspecified foot with unspecified severity; L84 Corns and callosities; M24.572 Contracture, left ankle; M24.571 Contracture, right ankle | CPT/HCPCS: 73630 ==

== ENCOUNTER → 2021-01-18 08:26 | Outpatient (BNVA) | payer MEDICAID, SELFPAY | PROVIDERS: Family Provider Nurse Practitioner; PCP Family Medicine; Visit Provider Family Medicine | DX: E11.9 Type 2 diabetes mellitus without complications (principal); Z12.5 Encounter for screening for malignant neoplasm of prostate; F17.219 Nicotine dependence, cigarettes, with unspecified nicotine-induced disorders; Z68.34 Body mass index [BMI] 34.0-34.9, adult | CPT/HCPCS: 80053; 80061; 82043; 83036; 85025; G0103 ==

== ENCOUNTER → 2021-04-20 08:28 | Outpatient (BNVA) | payer MEDICAID, SELFPAY | PROVIDERS: Family Provider Nurse Practitioner; PCP Family Medicine; Visit Provider Family Medicine | DX: E11.8 Type 2 diabetes mellitus with unspecified complications (principal); W57.XXXA Bitten or stung by nonvenomous insect and other nonvenomous arthropods, initial encounter; F17.219 Nicotine dependence, cigarettes, with unspecified nicotine-induced disorders; Z68.35 Body mass index [BMI] 35.0-35.9, adult; F17.210 Nicotine dependence, cigarettes, uncomplicated | CPT/HCPCS: 80048; 83036 ==

== ENCOUNTER 2021-05-26 06:27 | Day surgery (SDC) | payer MEDICAID, SELFPAY ==
[2021-05-26] VITALS (7 sets, daily range): BP systolic 116–180; BP diastolic 84–102; PULSE 80–94; RESP 15–18; TEMP 36.2–36.7; O2SAT 98–100; BMI 35.3
--- NOTE | 2021-05-26 06:53 | ED_ITS ---
HPI - Wound/Laceration General: Chief Complaint: Wound/Laceration Stated Complaint: left middle finger lac Time Seen by Provider: 05/26/21 06:32 History of Present Illness: HPI narrative: 45-year-old male presents emergency room after a accident while at work he had a router bit cut to the tip of his left third finger muscles difficult amount of tissue. His last tetanus shot was 2 years ago as happened just prior to arrival he some mild oozing when he arri ves here. Onset (ago): minute(s) Location: other (Left third finger) Place: work Patient tetanus UTD: Yes Associated symptoms: Reports no associated symptoms; Denies chills, fever(s), nausea or vomiting Review of Systems Const: Denies: fever(s), chills, body aches, change in appetite, fatigue or malaise ENMT: Denies: throat pain, ear or mastoid pain, nasal discharge or nasal congestion Card: Denies: chest pain, edema, dyspnea on exertion or orthopnea Resp: Denies: dyspnea, productive cough or non-productive cough GI: Denies: abdominal pain, nausea, vomiting, hematemesis, coffee ground emesis, diarrhea, constipation, bloating, hematochezia or melena : Denies: flank pain, dysuria, urinary frequency or urinary urgency Skin/Breast: Denies: rash or pruritus PFSH ED PFSH: Medical History Foot ulcer due to secondary DM left great toe with last surgical debridement 11/13/2019 Nicotine dependence, cigarettes, with unspecified nicotine-induced disorders Post herpetic neuralgia Type 2 diabetes mellitus with complications Surgical History History of eye surgery left eye History of hand surgery right hand History of knee surgery right knee History of toe surgery left great toe surgical debridement 11/13/2019 Family History Grandmother Diabetes Social History Smoking and tobacco status: current every day smoker cigarettes Packs smoked per day: 0.75 Alcohol intake: current Alcohol intake frequency: holidays/special occasions only History of recent travel: No Physical Exam Const: COMMON NORMALS: no acute distress GENERAL APPEARANCE: cooperative and comfortable ORIENTATION/CONSCIOUSNESS: Yes awake, Yes oriented to person, Yes oriented to place and Yes oriented to time HENMT: COMMON NORMALS: normocephalic, atraumatic and hearing grossly normal bilaterally HEAD & SCALP: normocephalic and atraumatic Resp: COMMON NORMALS: normal respiratory effort, No retractions, No use of accessory muscles and clear to auscultation bilaterally AUSCULTATION: clear to auscultation bilaterally Cardio: COMMON NORMALS: regular rate, regular rhythm and No murmurs present (Cardio) RATE: regular rate RHYTHM: regular rhythm Extremity: COMMON NORMALS: capillary refill normal, no clubbing, cyanosis or edema, no calf tenderness and no pedal edema NARRATIVE EXTREMITY EXAM: Left third finger tissue destruction of the overlying tissue at the tip and half of the finger pad there is exposed phalanx present cannot close the tissue gap and reapproximate the edges. Mild bleeding controlled by direct pressure. Neuro: SENSORIUM/ORIENTATION: Yes oriented to person, Yes oriented to place and Yes oriented to time Skin: COMMON NORMALS: no rashes or lesions noted GENERAL SKIN EXAM: no rashes or lesions noted Course Vital Signs: Vital signs: Vital Signs Temperature 97.3 F L 05/26/21 13:08 Pulse Rate 83 05/26/21 13:08 Respiratory Rate 18 05/26/21 13:08 Blood Pressure 116/94 05/26/21 13:08 Pulse Oximetry 99 05/26/21 13:08 MDM - Wound/Laceration MDM Narrative: Medical decision making narrative: Discussed with Dr. Michael on-call for orthopedics. She will take patient to the OR to washout the wound and get effective coverage of the exposed bone. Discharge Plan Discharge Patient Disposition: Placed in Observation Clinical Impression: Partial traumatic amputation of left middle finger through phalanx Coding Level of Care Code ED Second Facing Baster for Jameson Valentin Exam Detailed
--- NOTE | 2021-05-26 07:04 | XR_ITS ---
WS: [id number] 3 views of the left third finger, 05/26/2021 Clinical Data: 3rd Comparison: None. Findings: No fractures or dislocations are seen. There is soft tissue avulsion of the distal portion of the lef t third finger adjacent to the ungual tuft of the distal phalanx. The joint spaces are not remarkable . The remainder of the third finger is normal. XR/XR finger LT min 2V [id number] Impression: Soft tissue avulsion next to the ungual tuft of the distal phalanx of the left third finger.
[2021-05-26] MEDS: ceFAZolin 1,000 MG in sodium chloride 0.9% (plus) 100 ML 200 MG IV (07:49)
[2021-05-26] MEDS: ondansetron 2 mg/ML SDV 2 mL 4 MG IVP (08:33)
--- NOTE | 2021-05-26 09:44 | ANES.PREANE2 ---
Pre-Anesthetic Assessment Pre-Anesthetic Assessment: Height/Weight: Height 1.88 m Weight 124.738 kg Temp Pulse Resp BP Pulse Ox 97.1 F L 93 18 161/95 98 05/26/21 09:11 05/26/21 09:11 05/26/21 09:11 05/26/21 09:11 05/26/21 09:11 Preop Diagnosis: Left diabetic foot ulcer Proposed Procedure: Operation Date: 05/26/21 13:15 Proposed Procedures p Amputation Finger(Left) - Keily Espinoza MD Was Beta Seema taken within 24 hours: N/A Was Clonidine taken within 24 hours: N/A Last intake: Intake Last Liquid Date 05/26/21 Last Liquid Time 06:30 Last Solid Date 05/26/21 Last Solid Time 05:45 Social: Social History: Tobacco and No alcohol Exam: Pre-Anes Outpt Exam: alert, oriented x 3 and regular rate & rhythm Airway: Submandibular: WNL Cervical ROM: WNL MP: 2 Dentition: Full Pulmonary: Pulmonary: COPD Metabolic: Metabolic: DM and Morbid obesity Anesthetic Plan: ASA status: 3 Anesthesia: Choice Risk of > 500 ml blood loss (7ml/kg in children): No PFSH Anesthesia PFSH: Medical History Foot ulcer due to secondary DM left great toe with last surgical debridement 11/13/2019 Nicotine dependence, cigarettes, with unspecified nicotine-induced disorders Post herpetic neuralgia Type 2 diabetes mellitus with complications Surgical History History of eye surgery left eye History of hand surgery right hand History of knee surgery right knee History of toe surgery left great toe surgical debridement 11/13/2019 Family History Grandmother Diabetes Social History Smoking and tobacco status: current every day smoker cigarettes Packs smoked per day: 0.75 Alcohol intake: current Alcohol intake frequency: holidays/special occasions only History of recent travel: No Data Anesthesia Cardiac Studies: No Data to Display
--- NOTE | 2021-05-26 11:23 | P.HP_ITS ---
Same Day Surgery H&P Indication for Procedure/HPI DATE OF PROCEDURE: May 26, 2021 CHIEF COMPLAINT/INDICATIONFOR SURGICAL PROCEDURE: Partial traumatic amputation left long finger PREOP DIAGNOSIS: Partial Amputation Left Long finger PLANNED PROCEDRUE: Operation Date: 05/26/21 13:15 Proposed Procedures p Revision amputation Middle Finger(Left) - Keily Espinoza MD In his usual state of health when he placed the tip of his middle finger into the router bit that he was using to router a chess piece. ROS Patient is advised to decrease tobacco use, particularly during the healing process. Medications/Allergies* Allergies/Adverse Reactions Allergy/AdvReac Type Severity Reaction Status Date / Time No Known Allergies Allergy Verified 05/26/21 06:39 Pertinent History/Comorbid Conditions* Diabetes Medical History (Updated 05/26/21 @ 11:13 by Keily Espinoza MD) Foot ulcer due to secondary DM left great toe with last surgical debridement 11/13/2019 Nicotine dependence, cigarettes, with unspecified nicotine-induced disorders Post herpetic neuralgia Type 2 diabetes mellitus with complications Surgical History (Updated 01/15/20 @ 09:57 by KATI Simms) History of eye surgery left eye History of hand surgery right hand History of knee surgery right knee History of toe surgery left great toe surgical debridement 11/13/2019 Family History (Updated 01/14/20 @ 11:21 by Janine Simpson LPN) Diabetes Grandmother Social History Smoking and tobacco status: current every day smoker cigarettes Packs smoked per day: 0.75 Alcohol intake: current Alcohol intake frequency: holidays/special occasions only History of recent travel: No Pertinent Exam Findings alert, oriented x 3, clear to auscultation bilaterally, regular rate & rhythm, operative site marked and procedure specific exam findings (Absence of fat pad and visible distal phalanx left long finger) Pertinent Data PERTINENT DATA: Loss with loss of the distal tuft of the distal phalanx of the left long finger Related Problem List Diagnoses (1) Partial traumatic amputation of left middle finger through phalanx: Qualifiers: Encounter type: initial encounter Qualified Code(s): S68.623A - Partial traumatic transphalangeal amputation of left middle finger, initial encounter Recommendations Surgery/Procedure today Coding Level of Care Code Acute Community Outreach Coordinator for [facility] Fwd Diagnoses Partial traumatic amputation of left middle finger through phalanx S68.623A Encounter type: initial encounter
[2021-05-26] MEDS: CELEcoxib 200 mg Capsule 400 MG PO (11:44)
[2021-05-26] MEDS: acetaminophen 1,000 MG/100 ML PIGGYBACK 400 MG IV (11:44)
[2021-05-26] MEDS: sodium chloride 0.9% 1,000 ML 30 ML IV (11:45)
[2021-05-26] MEDS: vancomycin 1,000 MG in sodium chloride 0.9% 250 ML 250 MG IV (11:47)
[2021-05-26] MEDS: vancomycin 1,000 MG SDV 1000 MG IRRIGATION (12:09)
[2021-05-26] MEDS: silvasorb gel 44.4 mL 1 APPLIC TOPICAL (12:42)
--- NOTE | 2021-05-26 13:11 | SUR.PHASEI ---
1303 pt awake alert sitting upright in bed , talkative, pt denies pain and nauseq, pt want to go home, pt asking how long till he can leave, pt refused ice chips, pt to OPS awake alert dressing to finger D/I.
--- NOTE | 2021-05-26 13:18 | P.OP_ITS ---
Operative Report Date of procedure: May 26, 2021 Pre-op Diagnosis: Partial Amputation Left Long finger Post-op diagnosis: same Post-op Findings: Complete loss of palmar pad with loss of volar aspect of the distal phalanx, distal tuft. Procedure Done: Revision amputation left long finger. Nailbed repair. Bone excision. Implants: None Specimens removed/disposition: None Pathology: none sent Surgeon: Keily Espinoza Online Editor: [facility] operating room technicians Anesthesia: MAC (With digital block.) Estimated blood loss (mL): 10 Tourniquet time (min): 0 IV fluids (mL): 500 Urine output (mL): 0 Urine output: No Colón Complications: None Findings: Loss of distal tuft of distal phalanx obliquely with the palmar portion missing. Complete loss of palmar pad of the long finger. Condition: stable Disposition: PACU (Then transferred to same-day surgery for discharge to home) Brief History: This 45-year-old gentleman was in his usual state of health when he was working on a chest piece of wood working. Unfortunately, he was using a router and his finger went into the router bit causing the above injury. He presented to the emergency department. He had enough distal skin loss and bone loss that the finger was unable to be closed in the emergency department. Since he had exposed bone, I was called for revision amputation. Procedure: Patient was brought to the operating theater. He was placed on the operating room table. A digital block with MAC anesthesia was administered without difficulty. Patient tolerated it well. Vancomycin 1 g was administered preoperatively as well. Surgical pause was performed prior to commencement of the surgical procedure. At the time of the surgical pause we identified the site and side of surgery. We also identified the patient's identity and appropriate administration of IV antibiotics. Following the surgical pause, the finger was evaluated. There was oblique loss of of the bone of the distal phalanx of the long finger. Also, the palmar pad was completely removed as well. The bone was palpable. There was a laceration in the nail bed as well. Care was taken to gently remove soft tissues from around the remaining portion of the bone. This was elevated with a combination of a knife and a Ramsay. Additionally the skin was freshened using a scalpel as appropriate. Once the distal bone was isolated, combination of a rongeur and a bone biter was used to remove the appropriate amount of bone to allow closure of skin. Hemostasis was obtained. Palpation of the distal remaining bone fragment demonstrated no soft edges. The corners were smoothed. Attention was then directed to closure. 5-0 Vicryl was used in the laceration of the nailbed. The nail was removed and shortened. Soft tissue was then folded over the end of the finger and approximated using 4-0 nylon. This was a mattress style suture. Closure was accomplished without difficulty. There were large dogears remaining. Hemostasis was excellent. The nail was returned to the finger to serve as a splint. Sterile dressing was then placed consisting of absorb followed by fluffed fluffs followed by tube gauze. This was taped in position. The patient was returned to recovery in satisfactory condition. He will be discharged home to follow-up with me in the office. There were no complications and no specimens. Associated Problem List Diagnoses (1) Partial traumatic amputation of left middle finger through phalanx: Qualifiers: Encounter type: initial encounter Qualified Code(s): S68.623A - Partial traumatic transphalangeal amputation of left middle finger, initial encounter
--- NOTE | 2021-05-26 14:17 | SUR.PHASEI ---
1303 PT TO OPS WITH NS UP AND VANCOMYCIN IVPB INFUSING AT MOD RATE, APPROX 50ML LEFT IN BAG HANDOFF AT BEDSIDE WITH OPS NURSE.
--- NOTE | 2021-05-26 15:54 | ANE.PACU2 ---
Inpatient post-anesthesia follow up: Airway intact: Yes Vital signs: Temperature 97.3 F Pulse Rate [Monito r] 94 Pulse Rate 83 Respiratory Rate 18 Blood Pressure [Ri ght Arm] 180/102 Blood Pressure 116/94 Pulse Oximetry 99 Oxygen Delivery Me thod Room Air Oxygen Flow Rate Fraction of Inspir ed Oxygen Hydration adequate: Yes Nausea and vomiting: No Pain level: 2 Mental status: Baseline
== END 2021-05-26 13:53 | disposition home or self-care (01) ==
LOC: ER 08:24 → OPS 08:46
PROVIDERS: Emergency Provider Family Medicine; PCP Family Medicine; Visit Provider Specialist
PROC: (CPT 26951; principal; 2021-05-26 13:15)
DX: S68.623A Partial traumatic transphalangeal amputation of left middle finger, initial encounter (principal); W31.89XA Contact with other specified machinery, initial encounter; E11.9 Type 2 diabetes mellitus without complications; F17.210 Nicotine dependence, cigarettes, uncomplicated; J44.9 Chronic obstructive pulmonary disease, unspecified; E66.01 Morbid (severe) obesity due to excess calories; Z68.35 Body mass index [BMI] 35.0-35.9, adult; Z83.3 Family history of diabetes mellitus
CPT/HCPCS: 26951; 73140; 96365; 96367; 96375; J0690; J2250; J2405; J3010; J3370; J3490; J7030

== ENCOUNTER → 2021-05-31 14:24 | Outpatient (BNVA) | payer MEDICAID, SELFPAY | PROVIDERS: PCP Family Medicine; Visit Provider Specialist | DX: S68.623A Partial traumatic transphalangeal amputation of left middle finger, initial encounter (principal); X58.XXXA Exposure to other specified factors, initial encounter | CPT/HCPCS: 73140 ==

== ENCOUNTER → 2021-07-14 08:30 | Outpatient (BNVA) | payer MEDICAID, SELFPAY | PROVIDERS: PCP Family Medicine; Visit Provider Family Medicine | DX: E11.9 Type 2 diabetes mellitus without complications (principal); F17.219 Nicotine dependence, cigarettes, with unspecified nicotine-induced disorders | CPT/HCPCS: 80053; 80061; 82043; 83036; 85025 ==

== ENCOUNTER 2021-07-26 21:53 | Emergency (ER) | payer MEDICAID, SELFPAY ==
[2021-07-26 22:08] VITALS: BP 173/106; PULSE 90; RESP 20; TEMP 36.8; O2SAT 99; BMI 35.3
--- NOTE | 2021-07-26 22:53 | ED_ITS ---
HPI - Eye Problem General: Chief complaint: Eye Problems Stated complaint: Something in Left Eye Painful Time Seen by Provider: 07/26/21 22:52 History of Present Illness: HPI Narrative: Patient is a 46-year-old male who comes to the ED with left eye pain. Patient was seen [facility] late this afternoon for procedure. He states that they injected his left eye with something to help with leakage in his eye and to get ready for cataract surgery later. Patient says he has had this procedure done 2 other times before and he had no complications. Today within an hour after getting the injection he started developing left eye pain and irritation. He rates the pain and discomfort is a 7 out of 10. He states it feels like there is something in his eye currently. He was unable to call [facility] because he was the last appointment for the day and they were closed by the time his pain started. Associated symptoms: Denies fever(s), headache(s), nausea, neck pain or vomiting Review of Systems Const: Denies: fever(s), chills or fatigue Eyes: Reports: eye discomfort (Left eye pain); Denies: change in vision ENMT: Denies: throat pain, odynophagia, nasal discharge or nasal congestion Card: Denies: chest pain, palpitations, edema, swelling of feet/ankles, dyspnea on exertion or orthopnea Resp: Denies: dyspnea, productive cough or non-productive cough GI: Denies: abdominal pain, nausea, vomiting, diarrhea, constipation or hematochezia : Denies: flank pain, difficulty urinating, dysuria or hematuria Musc: Denies: neck pain, back pain or extremity swelling Skin/Breast: Denies: rash or new lesions Neuro: Denies: headache(s), numbness in extremities or weakness in extremities PFS ED PFSH: Medical History Foot ulcer due to secondary DM left great toe with last surgical debridement 11/13/2019 Nicotine dependence, cigarettes, with unspecified nicotine-induced disorders Post herpetic neuralgia Type 2 diabetes mellitus with complications Surgical History History of eye surgery left eye History of hand surgery right hand History of knee surgery right knee History of toe surgery left great toe surgical debridement 11/13/2019 Family History Grandmother Diabetes Social History Smoking and tobacco status: current every day smoker cigarettes Packs smoked per day: 0.75 Alcohol intake: current Alcohol intake frequency: holidays/special occasions only History of recent travel: No Physical Exam Const: COMMON NORMALS: no acute distress, patient oriented x3 and alert GENERAL APPEARANCE: cooperative and comfortable HENMT: COMMON NORMALS: normocephalic HEAD & SCALP: normocephalic MOUTH: Normal oral and palatal mucosa present THROAT: posterior oropharynx normal and uvula midline Eye: COMMON NORMALS: Equal, round and reactive pupils present CONJUNCTIVA: Yes conjunctival abnormal positive left conjunctival injection diffuse PUPIL: Yes Equal, round and reactive pupils present SLIT LAMP EXAM: Yes slit lamp exam performed with fluorescein OTHER: iCare tonometer used to check pressure of left eye?pressures were around 20-22 in left eye. Neck/C-Spine: COMMON NORMALS: supple GENERAL: Yes normal visual inspection Resp: COMMON NORMALS: normal respiratory effort, No retractions, No use of accessory muscles and clear to auscultation bilaterally AUSCULTATION: clear to auscultation bilaterally Cardio: COMMON NORMALS: regular rate, regular rhythm, S1 normal heart sound present, S2 normal heart sound present, No gallops present (Cardio), No clicks present (Cardio), No murmurs present (Cardio) and Peripheral pulses 2+ throughout RATE: regular rate RHYTHM: regular rhythm HEART SOUNDS: S1 normal heart sound present and S2 normal heart sound present PERIPHERAL PULSES: Peripheral pulses 2+ throughout GI: COMMON NORMALS: Normal to inspection, nondistended, normoactive bowel sounds present, Soft to palpation, non-tender and no masses PALPATION: Yes Soft to palpation : COMMON NORMALS: Yes no CVA tenderness BLADDER/KIDNEY EXAM: Yes no CVA tenderness Back/Pelvis: COMMON NORMALS: no CVA tenderness Extremity: COMMON NORMALS: normal to inspection Neuro: COMMON NORMALS: patient oriented x3 and moves all extremities SENSORIUM/ORIENTATION: Yes alert Skin: GENERAL SKIN EXAM: dry skin Course Consultations: Consultation #1: I contacted Fidel the physician data analysis assistant with the [facility] to discuss patient case. He thought that the procedure the patient received today at the clinic is probably causing some conjunctiva irritation. I told him that the tetracaine drops resolved his eye pain and the rest of the eye exam was benign. He told me to send patient home with erythromycin eye ointment and that he can use the tetracaine eyedrops tonight every 2-3 hours to help with pain. He thought the symptoms should resolve by tomorrow morning but he told me to have patient call [facility] in the morning if he is not feeling any better and they will see him at the clinic. Vital Signs: Vital signs: Vital Signs Temperature 98.2 F 07/26/21 22:08 Pulse Rate 88 07/27/21 00:27 Respiratory Rate 20 H 07/27/21 00:27 Blood Pressure 173/106 07/26/21 22:08 Pulse Oximetry 94 07/27/21 00:27 MDM - Eye Problem MDM Narrative: Medical decision making narrative: Patient is a 46-year-old male comes to the ED with left eye pain. He was seen at [facility] earlier today and they performed an eye injection procedure. I contacted Fidel the physician data analysis assistant with the [facility] to discuss patient case. He thought that the procedure the patient received today at the clinic is probably causing some conjunctiva irritation. I told him that the tetracaine drops resolved his eye pain and the rest of the eye exam was benign. He told me to send patient home with erythromycin eye ointment and that he can use the tetracaine eyedrops tonight every 2-3 hours to help with pain. He thought the symptoms should resolve by tomorrow morning but he told me to have patient call [facility] in the morning if he is not feeling any better and they will see him at the clinic. Patient was discharged home with some tetracaine eyedrops and erythromycin eye ointment. He was told to follow-up with [facility] in the morning. Patient understood and agree with plan. Discharge Plan Discharge Patient Disposition: Home Clinical Impression: Acute conjunctivitis of left eye Qualifiers: Acute conjunctivitis type: unspecified Qualified Code(s): H10.32 - Unspecified acute conjunctivitis, left eye Condition: Stable Prescriptions: New erythromycin 5 mg/gram (0.5 %) ointment 1 applic ophthalmic (eye) Q6H PRN (Reason: conjuctivitis) Qty: 3.5 RF: 0 No Action (DME) diabetic shoes See Rx Instructions .Route .MEDSUPPLY Qty: 1 RF: 0 metformin 500 mg tablet 500 mg PO BID Qty: 180 RF: 0 Discharge Orders: Discharge ED (Routine); Ordered 07/27/21 Ordered By: Ronni Coronel Referrals: Polly Wells DO [Primary Care Provider] - Discharge Diet: Regular Discharge Activity: Increase activity as tolerated Patient Instructions: Conjunctivitis (ED) Activity Restrictions/Additional Instructions: Follow-up with medical provider as directed. Call [facility] tomorrow morning phone number is [phone]. Address is [facility] [address] Sebastian. take medications as prescribed. You can use the tetracaine eyedrops to help with pain every 2 hours through the night. Return to the ER or your medical provider if condition worsens. Please read and understand discharge instructions. If any questions, please ask. Coding Level of Care Code ED Weave Defect Charting Clerk for [facility] Fwveronica Exam Comprehensive
[2021-07-26] MEDS: fluorescein 1 mg Strip EYE-LEFT (23:47)
[2021-07-26] MEDS: tetracaine 0.5% Op Soln 4 mL Btl 1 DROP EYE-LEFT (23:47)
[2021-07-26] MEDS: eye irrigation 30 mL Btl EYE-LEFT (23:47)
[2021-07-27] MEDS: erythromycin Op Oint 1 gm 1 APPLIC EYE-LEFT (00:11)
[2021-07-27 00:27] VITALS: PULSE 88; RESP 20; O2SAT 94
== END 2021-07-27 00:28 | disposition home or self-care (01) ==
PROVIDERS: Emergency Provider Physician Assistant; PCP Family Medicine
DX: H10.32 Unspecified acute conjunctivitis, left eye (principal); E11.9 Type 2 diabetes mellitus without complications; F17.210 Nicotine dependence, cigarettes, uncomplicated
CPT/HCPCS: 99283

== ENCOUNTER → 2021-10-13 08:52 | Outpatient (BNVA) | payer MEDICAID, SELFPAY | PROVIDERS: PCP Family Medicine; Visit Provider Family Medicine | DX: E11.8 Type 2 diabetes mellitus with unspecified complications (principal) | CPT/HCPCS: 80048; 83036 ==

== ENCOUNTER 2021-10-22 03:46 | Emergency (ER) | payer MEDICAID, SELFPAY ==
--- NOTE | 2021-10-22 03:52 | CTR_ITS ---
PROCEDURE INFORMATION: Exam: CT Abdomen And Pelvis With Contrast Exam date and time: 10/22/2021 3:52 AM Age: 46 years old Clinical indication: Abdominal pain; Localized; Right lower quadrant (rlq) TECHNIQUE: Imaging protocol: Computed tomography of the abdomen and pelvis with contrast. Radiation optimization: All CT scans at this facility use at least one of these dose optimization techniques: automated exposure control; mA and/or kV adjustment per patient size (includes targeted exams where dose is matched to clinical indication); or iterative reconstruction. Contrast material: VISI; Contrast volume: 95 ml; Contrast route: INTRAVENOUS (IV); COMPARISON: CR XR chest 2V* [id number] 02/12/2020 12:15 PM RADIATION DOSE METRICS: Total DLP (mGy-cm): 1928.3 FINDINGS: Lungs: There are some strandy and hazy opacity seen in the right middle lobe likely representing atelectasis. However, a developing right middle lobe infiltrate and pneumonia cannot be entirely excluded. Liver: Normal. No mass. Gallbladder and bile ducts: Normal. No calcified stones. No ductal dilation. Pancreas: Normal. No ductal dilation. Spleen: Normal. No splenomegaly. Adrenal glands: Normal. No mass. Kidneys and ureters: Normal. No hydronephrosis. Stomach and bowel: Unremarkable. No obstruction. No mucosal thickening. Appendix: The appendix is not seen in today's examination. There are no inflammatory changes seen to suggest appendicitis. Intraperitoneal space: Unremarkable. No free air. No significant fluid collection. Vasculature: Unremarkable. No abdominal aortic aneurysm. Lymph nodes: Unremarkable. No enlarged lymph nodes. Urinary bladder: Unremarkable as visualized. Reproductive: Unremarkable as visualized. Bones/joints: Unremarkable. No acute fracture. Soft tissues: Unremarkable. Other findings: Strandy opacities are seen in the perinephric fascia bilaterally compatible with chronic scarring. CT/CT abdomen pelvis w con* [id number] IMPRESSION: 1. There are no acute abdominal findings. 2. The appendix is not seen in today's examination. There are no inflammatory changes present to suggest appendicitis. 3. There is no evidence for ureteral obstruction. 4. Strandy and hazy opacities are seen in the right middle lobe likely representing atelectasis although a developing right middle lobe infiltrate cannot be excluded.
[2021-10-22 03:55] VITALS: BP 172/101; PULSE 89; RESP 20; TEMP 36.9; O2SAT 100; BMI 35.9
[2021-10-22 04:06] LABS: Basophils # 0.1 10^3/uL (0.0-0.1); Basophils % 0.3 %; Eosinophils % 0.1 %; Hematocrit 45.7 % (42.0-52.0); Hemoglobin 15.6 g/dL (11.7-16.6); Lymphocytes # 1.2 10^3/uL (0.8-4.8); Lymphocytes % 8.5 %; Mean Corpuscular HGB Conc 34.1 g/dL (30.0-36.0); Mean Corpuscular Hemoglobin 30.8 pg (28.0-34.0); Mean Corpuscular Volume 90.3 fl (80-94); Mean Platelet Volume 10.9 fL (7.4-10.4); Monocytes # 0.8 10^3/uL (0.2-0.9); Monocytes % 5.6 %; Neutrophils # 12.13 10^3/uL (1.8-7.7); Nucleated Red Blood Cells % 0 %; Platelet Count 231 10^3/cmm (130-400); Red Blood Count 5.06 10^6/uL (4.1-5.3); Red Cell Distribution Width 12.4 % (12.1-15.1); White Blood Count 14.3 10^3/uL (4.0-10.0)
[2021-10-22 04:21] LABS: Alanine Aminotransferase 161 U/L (0-41); Albumin Level 4.2 g/dL (3.5-5.2); Alkaline Phosphatase 84 IU/L (40-130); Anion Gap 17.8 (5-19); Aspartate Amino Transferase 171 U/L (0-40); Blood Urea Nitrogen 14 mg/dL (6-20); Calcium 8.8 mg/dL (8.5-10.5); Carbon Dioxide 23 mmol/L (22-29); Chloride 97 mmol/L (98-107); Globulin 3.2 g/dL (1.3-4.6); Glomerular Filtration Rate 91.3 mL/min (90-130); Glucose 215 mg/dL (65-115); Lactate (Lactic Acid level) 2.2 mmol/L (0.5-2.2); Osmolality Calculated 283 mOsm/kg (285-295); Potassium 4.8 mmol/L (3.5-5.1); Sodium 133 mmol/L (136-145); Total Protein 7.4 g/dL (6.6-8.7)
[2021-10-22 04:25] LABS: Add Urine Microscopic? NO; Charge for UA Resulting for Rev
[2021-10-22 04:26] LABS: Bilirubin Urine Neg (Negative); Blood Urine Neg (Negative); Glucose Urine UA 4+ (Normal); Ketones Urine Negative (Negative); Leukocyte Esterase Urine Negative (Negative); Nitrate Urine Negative (Negative); Protein Urine Neg (Negative); Urine Appearance Clear (CLEAR); Urine Color Yellow (Yellow); Urobilinogen Urine 4 mg/dL (Negative); pH Urine 9 (5-7)
[2021-10-22 04:27] LABS: Sulfosalicylic Acid Urine Negative (Negative)
[2021-10-22] MEDS: iodixanol 320 mg/mL 100mL Btl IV (04:29)
[2021-10-22 04:33] LABS: Lipase 811 U/L (13-60)
[2021-10-22 04:36] VITALS: RESP 16
[2021-10-22] MEDS: morphine 4 mg/mL SDV 1 mL IVP ×2 (04:36→06:37)
[2021-10-22] MEDS: ondansetron 2 mg/ML SDV 2 mL 4 MG IVP (04:37)
[2021-10-22 04:55] VITALS: BP 159/98; PULSE 94; RESP 18; O2SAT 100
--- NOTE | 2021-10-22 05:53 | ED_ITS ---
HPI - Abdominal Pain General: Chief Complaint: Abdominal Pain Stated Complaint: Sever ABD Pain Time Seen by Provider: 10/22/21 03:51 History of Present Illness: HPI narrative: 46-year-old gentleman presenting with epigastric/periumbilical pain that migrated to his right lower quadrant. He says that started around 930 last evening. It is slowly gotten worse. No fever. He has vomited once. No diarrhea. No history of belly surgery. MD elicited complaint: abdominal pain Pertinent past history: none Onset (ago): hour(s) Pain Consistency: intermittent Location: Epigastric and RLQ Radiation: R flank Migration to: no migration Exacerbating factors: nothing Associated Symptoms: Reports change in bowel habits, nausea and vomiting; Denies coffee ground emesis, diarrhea, dyspepsia, dysuria, fever(s), hematuria and syncope Review of Systems Const: Denies: fever(s) Card: Denies: chest pain or syncope Resp: Denies: dyspnea, productive cough or non-productive cough GI: Reports: nausea, vomiting and change in bowel habits; Denies: coffee ground emesis or diarrhea : Denies: dysuria or hematuria PFSH ED PFSH: Medical History Foot ulcer due to secondary DM left great toe with last surgical debridement 11/13/2019 Nicotine dependence, cigarettes, with unspecified nicotine-induced disorders Post herpetic neuralgia Type 2 diabetes mellitus with complications Surgical History History of eye surgery left eye History of hand surgery right hand History of knee surgery right knee History of toe surgery left great toe surgical debridement 11/13/2019 Family History Grandmother Diabetes Social History Smoking and tobacco status: current every day smoker cigarettes Packs smoked per day: 0.75 Alcohol intake: current Alcohol intake frequency: holidays/special occasions only History of recent travel: No Physical Exam Const: COMMON NORMALS: no acute distress, patient oriented x3 and alert GENERAL APPEARANCE: cooperative; not comfortable HENMT: COMMON NORMALS: normocephalic HEAD & SCALP: normocephalic Chest: COMMONS NORMALS: normal inspection of the chest Resp: COMMON NORMALS: normal respiratory effort, No use of accessory muscles and clear to auscultation bilaterally AUSCULTATION: clear to auscultation bilaterally Cardio: COMMON NORMALS: regular rate and regular rhythm RATE: regular rate RHYTHM: regular rhythm GI: COMMON NORMALS: Soft to palpation INSPECTION: Yes abdominal distension AUSCULTATION: Yes normoactive bowel sounds PALPATION: Yes Soft to palpation and Yes Tenderness to palpation present (GI) Details: RLQ Neuro: COMMON NORMALS: patient oriented x3 SENSORIUM/ORIENTATION: Yes alert Course Vital Signs: Vital signs: Vital Signs Temperature 98.4 F 10/22/21 03:55 Pulse Rate 94 10/22/21 04:55 Respiratory Rate 18 10/22/21 04:55 Blood Pressure 159/98 10/22/21 04:55 Pulse Oximetry 100 10/22/21 04:55 MDM - Abdominal Pain MDM Narrative: Medical decision making narrative: 46-year-old gentleman with epigastric pain moving to the right lower quadrant. His white blood cell count is 14. Sodium 133. His bilirubin is normal, liver enzymes are slightly elevated. His lipase is 800. He is tender in his right lower quadrant. He does not seem to have overt peritoneal signs. His CT scan shows no acute abdominal abnormality. No ductal dilatation of the biliary system. No wall thickening of the gallbladder. His pancreas is normal by CT. He will be allowed home on liquid diet for the next 48 hours, then advance as tolerated. Lab Data: Labs: Lab Results 10/22/21 10/22/21 10/22/21 03:57 03:57 03:57 WBC 14.3 10^3/uL H 10 ^3/uL (4.0-10.0) RBC 5.06 10^6/uL 10^6 /uL (4.1-5.3) Hgb 15.6 g/dL g/dL (11.7-16.6) Hct 45.7 % % (42.0-52.0) MCV 90.3 fl fl (80-94) MCH 30.8 pg pg (28.0-34.0) MCHC 34.1 g/dL g/dL (30.0-36.0) RDW 12.4 % % (12.1-15.1) Plt Count 231 10^3/cmm 10^3 /cmm (130-400) MPV 10.9 fL H fL (7.4-10.4) Neut % (Auto) 85.0 % % Lymph % (Auto) 8.5 % % [place] % (Auto) 5.6 % % Eos % (Auto) 0.1 % % Baso % (Auto) 0.3 % % Neut # (Auto) 12.13 10^3/uL H 1 0^3/uL (1.8-7.7) Lymph # (Auto) 1.2 10^3/uL 10^3/ uL (0.8-4.8) [place] # (Auto) 0.8 10^3/uL 10^3/ uL (0.2-0.9) Eos # (Auto) 0.0 10^3/uL 10^3/ uL (0.0-0.8) Baso # (Auto) 0.1 10^3/uL 10^3/ uL (0.0-0.1) Nucleated RBC % (a uto) 0 % % Nucleated RBCs # 0.0 /100WBC /100W BC Sodium 133 mmol/L L mmol /L (136-145) Potassium 4.8 mmol/L mmol/L (3.5-5.1) Chloride 97 mmol/L L mmol/ L (98-107) Carbon Dioxide 23 mmol/L mmol/L (22-29) Anion Gap 17.8 (5-19) BUN 14 mg/dL mg/dL (6-20) Creatinine 0.9 mg/dL mg/dL (0.7-1.2) GFR Calculation 91.3 mL/min mL/mi n (90-130) Glucose 215 mg/dL H mg/dL (65-115) Calculated Osmolal ity 283 mOsm/kg L mOs m/kg (285-295) Lactate 2.2 mmol/L mmol/L (0.5-2.2) Calcium 8.8 mg/dL mg/dL (8.5-10.5) Total Bilirubin 1.0 mg/dL mg/dL (0.15-1.2) AST 171 U/L H U/L (0-40) ALT 161 U/L H U/L (0-41) Alkaline Phosphata se 84 IU/L IU/L (40-130) C-Reactive Protein 4.0 mg/L mg/L (0.0-4.9) Total Protein 7.4 g/dL g/dL (6.6-8.7) Albumin 4.2 g/dL g/dL (3.5-5.2) Globulin 3.2 g/dL g/dL (1.3-4.6) Lipase 811 U/L H U/L (13-60) Urine Color Urine Appearance Urine pH Ur Specific Gravit y Urine Protein Urine Glucose (UA) Urine Ketones Urine Blood Urine Nitrate Urine Bilirubin Prot Sulfosalicyli c Acd Urine Urobilinogen Ur Leukocyte Megan ase 10/22/21 04:01 WBC RBC Hgb Hct MCV MCH MCHC RDW Plt Count MPV Neut % (Auto) Lymph % (Auto) [place] % (Auto) Eos % (Auto) Baso % (Auto) Neut # (Auto) Lymph # (Auto) [place] # (Auto) Eos # (Auto) Baso # (Auto) Nucleated RBC % (a uto) Nucleated RBCs # Sodium Potassium Chloride Carbon Dioxide Anion Gap BUN Creatinine GFR Calculation Glucose Calculated Osmolal ity Lactate Calcium Total Bilirubin AST ALT Alkaline Phosphata se C-Reactive Protein Total Protein Albumin Globulin Lipase Urine Color Yellow (Yellow) Urine Appearance Clear (CLEAR) Urine pH 9 H (5-7) Ur Specific Gravit y 1.010 (1.005-1.030) Urine Protein Neg (Negative) Urine Glucose (UA) 4+ H (Normal) Urine Ketones Negative (Negative) Urine Blood Neg (Negative) Urine Nitrate Negative (Negative) Urine Bilirubin Neg (Negative) Prot Sulfosalicyli c Acd Negative (Negative) Urine Urobilinogen 4 mg/dL H mg/dL (Negative) Ur Leukocyte Megan ase Negative (Negative) Discharge Plan Discharge Patient Disposition: Home Clinical Impression: Abdominal pain Qualifiers: Abdominal location: right lower quadrant Qualified Code(s): R10.31 - Right lower quadrant pain Condition: Stable Prescriptions: New hydrocodone-acetaminophen 5-325 mg tablet 1 tab PO Q8H PRN (Reason: pain) Qty: 7 RF: 0 Zofran 4 mg tablet 4 mg PO Q6H PRN (Reason: nausea and vomiting) Qty: 10 RF: 0 No Action (DME) diabetic shoes See Rx Instructions .Route .MEDSUPPLY Qty: 1 RF: 0 metformin 1,000 mg tablet 1,000 mg PO BID 90 Days Qty: 180 RF: 0 erythromycin 5 mg/gram (0.5 %) ointment 1 applic ophthalmic (eye) Q6H PRN (Reason: conjuctivitis) Qty: 3.5 RF: 0 Discharge Orders: Discharge ED (Routine); Ordered 10/22/21 Ordered By: Xavier Mejía Referrals: Polly Wells DO [Primary Care Provider] - 1-3 days Discharge Diet: Advance as tolerated and Clear Liquid Discharge Activity: Increase activity as tolerated Patient Instructions: Abdominal Pain (ED), Opioid Safety Activity Restrictions/Additional Instructions: Use the magnesium citrate you were given in the ER at home. Pain and nausea medication as needed. Clear liquid diet for the next 48 hours, then begin to add food as you tolerate. Return for vomiting liquids or medications, fever greater than 100, worsening pain despite treatment, any other concerns. Coding Level of Care Code ED Bill Of Lading Clerk for [facility] Fwd Exam Detailed
[2021-10-22 06:37] VITALS: RESP 16
[2021-10-22] MEDS: magnesium citrate Btl 296 mL PO (06:37)
[2021-10-22 06:51] VITALS: BP 145/81; PULSE 89; RESP 16; O2SAT 97
== END 2021-10-22 06:55 | disposition home or self-care (01) ==
PROVIDERS: Emergency Provider Emergency Medicine; PCP Family Medicine
DX: R10.31 Right lower quadrant pain (principal); E11.9 Type 2 diabetes mellitus without complications; F17.210 Nicotine dependence, cigarettes, uncomplicated
CPT/HCPCS: 74177; 80053; 81003; 83605; 83690; 85025; 86140; 96374; 96375; 96376; 99283; J2270; J2405; Q9967

== ENCOUNTER → 2021-10-25 10:15 | Outpatient (BNVA) | payer MEDICAID, SELFPAY | PROVIDERS: PCP Family Medicine; Visit Provider Family Medicine | DX: K85.90 Acute pancreatitis without necrosis or infection, unspecified (principal); R10.31 Right lower quadrant pain | CPT/HCPCS: 80053; 83690; 85025 ==

== ENCOUNTER → 2021-11-27 14:28 | Outpatient (BNVA) | payer MEDICAID, SELFPAY | PROVIDERS: PCP Family Medicine; Visit Provider Family Medicine | DX: K85.00 Idiopathic acute pancreatitis without necrosis or infection (principal) | CPT/HCPCS: 80053 ==

== ENCOUNTER → 2022-01-09 11:25 | Outpatient (BNVA) | payer MEDICAID, SELFPAY | PROVIDERS: PCP Family Medicine; Visit Provider Family Medicine | DX: E11.8 Type 2 diabetes mellitus with unspecified complications (principal); F17.219 Nicotine dependence, cigarettes, with unspecified nicotine-induced disorders | CPT/HCPCS: 36415; 80048; 83036 ==

== ENCOUNTER → 2022-03-13 10:44 | Outpatient (BNVA) | payer MEDICAID, SELFPAY | PROVIDERS: PCP Family Medicine; Visit Provider Podiatrist Foot & Ankle Surgery | DX: E11.621 Type 2 diabetes mellitus with foot ulcer (principal); L97.529 Non-pressure chronic ulcer of other part of left foot with unspecified severity; M21.41 Flat foot [pes planus] (acquired), right foot; M21.42 Flat foot [pes planus] (acquired), left foot; L84 Corns and callosities; M20.12 Hallux valgus (acquired), left foot; F17.210 Nicotine dependence, cigarettes, uncomplicated | CPT/HCPCS: 99214; 99215 ==

== ENCOUNTER 2022-04-06 08:17 | Day surgery (SDC) | payer MEDICAID, SELFPAY ==
[2022-04-05 12:42] VITALS: BMI 35.9
--- NOTE | 2022-04-06 | SCC_ITS ---
Procedure done: Correction and of left hallux valgus and condylectomy left hallux distal phalanx. 2 seconds of fluoroscopic guidance, for a cumulative dose of 0.030 mGy, was provided to Dr. Feliz by the radiology department. C-arm images of the foot were saved for the patient's permanent record. VENECIA
--- NOTE | 2022-04-06 09:12 | W.PM.OPSUD ---
Surgery/Procedure H&P Update DATE OF PROCEDURE: April 06, 2022 DATE H&P PERFORMED: 05/26/21 CHANGES TO PREVIOUS DOCUMENTATION: none PREOP DIAGNOSIS: Partial Amputation Left Long finger PLANNED PROCEDURE: Operation Date: 04/06/22 10:30 Proposed Procedures p Condylectomy 47578/29045/m20.10(Left) - Sarabjit Feliz DPM s correction of left hallux valgus(Left) - Sarabjit Feliz DPM
[2022-04-06 09:27] VITALS: BP 147/95; PULSE 73; RESP 18; TEMP 36.4; O2SAT 98
--- NOTE | 2022-04-06 09:54 | ANES.PREANE2 ---
Pre-Anesthetic Assessment Height/Weight: Height 1.88 m Weight 127.006 kg Temp Pulse Resp BP Pulse Ox 97.5 F L 73 18 147/95 98 04/06/22 09:27 04/06/22 09:27 04/06/22 09:27 04/06/22 09:27 04/06/22 09:27 Preop Diagnosis: Left hallux valgus Operation Date: 04/06/22 10:30 Proposed Procedures p Condylectomy 57063/09117/m20.10(Left) - Sarabjit Feliz DPM s correction of left hallux valgus(Left) - Sarabjit Feliz DPM Familial anesthetic complications: none Was Beta Seema taken within 24 hours: N/A Was Clonidine taken within 24 hours: N/A Last intake: Intake Last Liquid Date 04/05/22 Last Liquid Time 23:30 Last Solid Date 04/05/22 Last Solid Time 21:30 Social Tobacco and No alcohol Exam alert, oriented x 3, clear to auscultation bilaterally and regular rate & rhythm Airway Submandibular: within normal limits Cervical ROM: within normal limits Mallampati: Class II Dentition: chipped Pulmonary None reported CV/HEM None reported METS > 4 None reported Hepatic None reported GI Hx of pancreatitis Metabolic Diabetes Mellitus Obese Musc/[facility] Osteoarthritis/DJD Hallux valgus Neuropsych Neuropathy (Post herpetic neuralgia ) Anesthetic Plan ASA status: 3 (46 year old obese diabetic smoker) Anesthesia: Anesthesia Evaluation, General and MAC Other: I discussed with the patient risks, goals, and benefits of MAC and general anesthesia. We discussed spectrum of MAC anesthesia including conversion to general as well as possibility of recall of intraoperative stimuli including discomfort/pain. Patient agrees to proceed with MAC. Risk of > 500 ml blood loss (7ml/kg in children): No Medications/Allergies Home Medications Medication Instructions Recorded Confirmed Last Taken Type diabetic shoes #1 ea NS 12/01/20 03/31/22 Unknown Rx Diabetic Shoes with 3 sets of #1 ea 12/05/21 03/31/22 Unknown Rx insoles metformin 1,000 mg tablet See Rx Instructions .ROUTE 02/05/22 04/06/22 04/05/22 Rx .COMPLEX #180 tab mupirocin 2 % topical ointment 1 applic TOPICAL BID #22 g 03/22/22 04/06/22 04/05/22 Rx clotrimazole-betamethasone 1 1 applic TOPICAL BID #15 g 03/31/22 04/06/22 04/05/22 Rx %-0.05 % topical cream Allergies Allergy/AdvReac Type Severity Reaction Status Date / Time No Known Allergies Allergy Verified 03/31/22 10:43 [facility] Anesthesia Medical History Foot ulcer due to secondary DM left great toe with last surgical debridement 11/13/2019 Nicotine dependence, cigarettes, with unspecified nicotine-induced disorders Post herpetic neuralgia Type 2 diabetes mellitus with complications Surgical History History of eye surgery left eye History of hand surgery right hand History of knee surgery right knee History of toe surgery left great toe surgical debridement 11/13/2019 Family History Grandmother Diabetes Social History Smoking and tobacco status: current every day smoker cigarettes Packs smoked per day: 0.75 Alcohol intake: current Alcohol intake frequency: holidays/special occasions only History of recent travel: No Data Anesthesia Cardiac Studies: No Data to Display
[2022-04-06 09:57] LABS: Glucose Point of Care 113 mg/dL (70-110)
[2022-04-06] MEDS: sodium chloride 0.9% 1,000 ML 30 ML IV (10:09)
[2022-04-06] MEDS: gabapentin 300 mg Capsule PO (10:10)
[2022-04-06] MEDS: CELEcoxib 200 mg Capsule 400 MG PO (10:10)
--- NOTE | 2022-04-06 10:29 | W.PM.OPSUD ---
Surgery/Procedure H&P Update DATE OF PROCEDURE: April 06, 2022 DATE H&P PERFORMED: 03/13/22 CHANGES TO PREVIOUS DOCUMENTATION: none PREOP DIAGNOSIS: Left hallux valgus PLANNED PROCEDURE: Operation Date: 04/06/22 10:30 Proposed Procedures p Condylectomy 55803/[id number]/m20.10(Left) - Sarabjit Feliz DPM s correction of left hallux valgus(Left) - Sarabjit Feliz DPM
[2022-04-06] MEDS: ceFAZolin 3,000 MG in sodium chloride 0.9% (100 ml) 100 ML 200 MG IV (10:40)
[2022-04-06] MEDS: lidocaine 2% INJ 20 mL INJECTION (11:03)
--- NOTE | 2022-04-06 11:19 | PM.OP ---
Operative Report Date of procedure: April 06, 2022 Pre-op diagnosis: Preop Diagnosis: Left hallux valgus, recalcitrant wound to the left plantar hallux. 20 Brief History: Wound has been recalcitrant, patient has been applying daily moisturizer, avoid walking barefoot.? And wears diabetic shoes with insoles.? He would like to be more proactive and discuss surgical offloading to his left great toe.? Recommended correction of hallux valgus and partial phalangectomy to the left great toe.? Risks include pain, bleeding, numbness, infection, transfer pressure, transfer lesions, transfer wounds, altered mechanics, decreased range of motion, need for advanced bracing, orthotics and potential need for additional surgery, ultimately there is risk for postoperative infection that may require amputation, loss of limb and loss of life.? Patient wishes to proceed on April 06, 2022 x-rays on file, let foot taken 12/16/2020 shows hallux valgus and prominent condyle at the distal phalanx left hallux.? Patient n.p.o. since midnight. Informed consent signed by patient and myself. Initialed his left foot. Patient wishes to proceed. No guarantees written, expressed or implied. Procedure: Pre-op diagnosis: Left hallux valgus, recalcitrant wound left hallux. ? Post-op diagnosis: Same Post-op findings: No obvious devitalized bone to the left great toe Procedure done: Correction and of left hallux valgus and condylectomy left hallux distal phalanx. CPT codes 48854 and 54414 Implants: 4-0 Vicryl, 4-0 nylon Specimens removed/disposition: None Pathology: None Surgeon: Sarabjit Feliz D.P.M. Coremaking Supervisor: See intraoperative documentation Estimated blood loss: 5 See Intra-Op documentation IV fluids: None Urine output: 0 Complications: None Findings: None Under mild sedation the patient was brought to the operating room and remained on the gurney in supine position.? A timeout was performed.? Anesthesia was administered by the anesthesia service.? Local anesthesia injected by myself consisting of 20 cc of one-to-one mixture 1% lidocaine and 0.25% Marcaine plain in a left Soliz block fashion.? Well-padded pneumatic tourniquet applied to the left ankle.? The left lower extremity was then scrubbed, prepped and draped utilizing normal aseptic technique.? No Esmarch bandage was utilized.? Tourniquet was inflated at the left ankle at 250 mmHg. Attention was directed to the left hallux interphalangeal joint where a linear longitudinal incision was made through skin with dissection carried down to the level of the extensor tendons. Transverse tenotomy of the extensor houses longus tendon and capsulotomy performed at the hallux interphalangeal joint.? Osteotomy of the proximal phalanx head oriented from distal lateral to proximal medial to help correct the hallux valgus was performed and the head of the proximal phalanx of the left hallux was excised and passed from operative field.? Bony prominence at the condyle distal phalanx left hallux medially was palpated and this was transected utilizing a sagittal saw and smoothed utilizing rongeur and rasp.? The incision was then flushed with copious amounts of sterile saline solution.? Range of motion at the hallux and hallux interphalangeal joint was free of crepitus.? No devitalized bone encountered.? Dorsal incision was then reapproximated at the left hallux utilizing 4-0 Vicryl to reapproximate the extensor houses longus tendon followed by skin closure with 4-0 nylon.? The incision was then dressed with Adaptic, sterile 4 x 4, Kerlix and Ronen wrap followed by application of cam boot.? Tourniquet was deflated and a prompt hyperemic response was noted to the distal digits of the left foot.? Patient tolerated the procedure and anesthesia well and was transferred to the PACU with vital signs stable and vascular status intact.? Following a period of postop monitoring he will be discharged home is to be nonweightbearing to the left foot and elevate while resting.? Will keep his postoperative dressings clean, dry and intact until follow-up visit in podiatry clinic next week for nursing visit and his first dressing change.
[2022-04-06 11:20] VITALS: BP 102/65; PULSE 96; RESP 16; TEMP 36.8; O2SAT 96
[2022-04-06 11:25] VITALS: BP 124/74; PULSE 86; RESP 14; O2SAT 97
[2022-04-06 11:35] VITALS: BP 132/92; PULSE 75; RESP 18; TEMP 36.8; O2SAT 97
[2022-04-06 12:05] VITALS: BP 125/90; PULSE 82; RESP 18; TEMP 36.8; O2SAT 97
--- NOTE | 2022-04-06 15:04 | ANE.PACU2 ---
Inpatient post-anesthesia follow up: Airway intact: Yes Vital signs: Temperature 98.2 F Pulse Rate 82 Respiratory Rate 18 Blood Pressure 125/90 Pulse Oximetry 97 Oxygen Delivery Me thod Room Air Oxygen Flow Rate 8 Fraction of Inspir ed Oxygen Hydration adequate: Yes Nausea and vomiting: No Pain level: 1 Mental status: Baseline
== END 2022-04-06 12:15 | disposition home or self-care (01) ==
PROVIDERS: PCP Family Medicine; Visit Provider Podiatrist Foot & Ankle Surgery
PROC: (CPT 21050; principal; 2022-04-06 10:30)
PROC: (CPT 28297; 2022-04-06 10:30)
DX: M20.12 Hallux valgus (acquired), left foot (principal); E11.40 Type 2 diabetes mellitus with diabetic neuropathy, unspecified; E66.9 Obesity, unspecified; Z68.35 Body mass index [BMI] 35.0-35.9, adult; Z79.84 Long term (current) use of oral hypoglycemic drugs; F17.210 Nicotine dependence, cigarettes, uncomplicated
CPT/HCPCS: 28298; 36416; 76000; 82962; A7015; J0690; J2704; J3490; J7030

== ENCOUNTER → 2022-04-28 13:25 | Outpatient (BNVA) | payer MEDICAID, SELFPAY | PROVIDERS: PCP Family Medicine; Visit Provider Family Medicine Adult Medicine | DX: R10.9 Unspecified abdominal pain (principal) | CPT/HCPCS: 80053; 82150; 83690; 85025 ==

== ENCOUNTER → 2022-05-03 08:04 | Outpatient (BNVA) | payer MEDICAID, SELFPAY | PROVIDERS: PCP Family Medicine; Visit Provider Podiatrist Foot & Ankle Surgery | DX: E11.621 Type 2 diabetes mellitus with foot ulcer (principal); L97.509 Non-pressure chronic ulcer of other part of unspecified foot with unspecified severity; E11.8 Type 2 diabetes mellitus with unspecified complications; M21.41 Flat foot [pes planus] (acquired), right foot; M21.42 Flat foot [pes planus] (acquired), left foot; L84 Corns and callosities; M20.10 Hallux valgus (acquired), unspecified foot; M79.672 Pain in left foot; Z79.84 Long term (current) use of oral hypoglycemic drugs | CPT/HCPCS: 99024 ==

== ENCOUNTER → 2022-06-04 14:33 | Outpatient (BNVA) | payer MEDICAID, SELFPAY | PROVIDERS: PCP Family Medicine; Visit Provider Podiatrist Foot & Ankle Surgery | DX: E11.8 Type 2 diabetes mellitus with unspecified complications (principal); M21.41 Flat foot [pes planus] (acquired), right foot; M21.42 Flat foot [pes planus] (acquired), left foot; M20.10 Hallux valgus (acquired), unspecified foot; L84 Corns and callosities; L98.8 Other specified disorders of the skin and subcutaneous tissue | CPT/HCPCS: 99213 ==

== ENCOUNTER → 2022-06-20 13:12 | Outpatient (BNVA) | payer MEDICAID, SELFPAY | PROVIDERS: PCP Family Medicine; Visit Provider Podiatrist Foot & Ankle Surgery | DX: E11.8 Type 2 diabetes mellitus with unspecified complications (principal); M21.41 Flat foot [pes planus] (acquired), right foot; M21.42 Flat foot [pes planus] (acquired), left foot; M20.10 Hallux valgus (acquired), unspecified foot; M79.673 Pain in unspecified foot; L98.8 Other specified disorders of the skin and subcutaneous tissue; Z79.84 Long term (current) use of oral hypoglycemic drugs | CPT/HCPCS: 99213 ==

== ENCOUNTER → 2022-07-06 09:14 | Outpatient (BNVA) | payer MEDICAID, SELFPAY | PROVIDERS: PCP Family Medicine; Visit Provider Family Medicine | DX: E11.8 Type 2 diabetes mellitus with unspecified complications (principal); Z12.5 Encounter for screening for malignant neoplasm of prostate; F17.219 Nicotine dependence, cigarettes, with unspecified nicotine-induced disorders | CPT/HCPCS: 80048; 80061; 82043; 83036; G0103 ==

== ENCOUNTER → 2022-09-06 15:32 | Outpatient (BNVA) | payer MEDICAID, SELFPAY | PROVIDERS: PCP Family Medicine; Visit Provider Podiatrist Foot & Ankle Surgery | DX: E11.621 Type 2 diabetes mellitus with foot ulcer (principal); L97.522 Non-pressure chronic ulcer of other part of left foot with fat layer exposed; E11.8 Type 2 diabetes mellitus with unspecified complications; M21.41 Flat foot [pes planus] (acquired), right foot; M21.42 Flat foot [pes planus] (acquired), left foot; M20.10 Hallux valgus (acquired), unspecified foot; Z79.84 Long term (current) use of oral hypoglycemic drugs | CPT/HCPCS: 11042 ==

== ENCOUNTER → 2022-09-25 08:47 | Outpatient (BNVA) | payer MEDICAID, SELFPAY | PROVIDERS: PCP Family Medicine; Visit Provider Podiatrist Foot & Ankle Surgery | DX: E11.621 Type 2 diabetes mellitus with foot ulcer (principal); L97.522 Non-pressure chronic ulcer of other part of left foot with fat layer exposed; E11.8 Type 2 diabetes mellitus with unspecified complications; M21.41 Flat foot [pes planus] (acquired), right foot; M21.42 Flat foot [pes planus] (acquired), left foot; M20.10 Hallux valgus (acquired), unspecified foot; Z79.4 Long term (current) use of insulin | CPT/HCPCS: 11042; 73630 ==

== ENCOUNTER → 2022-10-01 12:57 | Outpatient (BNVA) | payer MEDICAID, SELFPAY | PROVIDERS: PCP Family Medicine; Visit Provider Podiatrist Foot & Ankle Surgery | DX: E11.621 Type 2 diabetes mellitus with foot ulcer (principal); Z79.84 Long term (current) use of oral hypoglycemic drugs; E11.8 Type 2 diabetes mellitus with unspecified complications; M21.41 Flat foot [pes planus] (acquired), right foot; M21.42 Flat foot [pes planus] (acquired), left foot; M20.11 Hallux valgus (acquired), right foot; M20.12 Hallux valgus (acquired), left foot; L97.522 Non-pressure chronic ulcer of other part of left foot with fat layer exposed | CPT/HCPCS: 99214 ==

== ENCOUNTER → 2022-10-17 14:42 | Outpatient (BNVA) | payer MEDICAID, SELFPAY | PROVIDERS: PCP Family Medicine; Visit Provider Podiatrist Foot & Ankle Surgery | DX: E11.8 Type 2 diabetes mellitus with unspecified complications (principal); M21.41 Flat foot [pes planus] (acquired), right foot; M21.42 Flat foot [pes planus] (acquired), left foot; M20.11 Hallux valgus (acquired), right foot; M20.12 Hallux valgus (acquired), left foot; Z79.84 Long term (current) use of oral hypoglycemic drugs | CPT/HCPCS: 99214 ==

== ENCOUNTER → 2022-10-27 18:15 | Outpatient (BNVA) | payer MEDICAID, SELFPAY | PROVIDERS: PCP Family Medicine; Visit Provider Nurse Practitioner Family | DX: J02.9 Acute pharyngitis, unspecified (principal); J06.9 Acute upper respiratory infection, unspecified | CPT/HCPCS: 87071; 87400; 87880 ==

== ENCOUNTER → 2022-12-18 08:05 | Outpatient (BNVA) | payer MEDICAID, SELFPAY | PROVIDERS: PCP Family Medicine; Visit Provider Podiatrist Foot & Ankle Surgery | DX: E11.8 Type 2 diabetes mellitus with unspecified complications (principal); E11.42 Type 2 diabetes mellitus with diabetic polyneuropathy; M21.41 Flat foot [pes planus] (acquired), right foot; M21.42 Flat foot [pes planus] (acquired), left foot; Z79.84 Long term (current) use of oral hypoglycemic drugs | CPT/HCPCS: 99214 ==

== ENCOUNTER → 2023-01-04 09:13 | Outpatient (BNVA) | payer MEDICAID, SELFPAY | PROVIDERS: PCP Family Medicine; Visit Provider Family Medicine | DX: E11.8 Type 2 diabetes mellitus with unspecified complications (principal); J30.2 Other seasonal allergic rhinitis | CPT/HCPCS: 80053; 83036 ==

== ENCOUNTER 2023-01-24 12:35 | Outpatient (CLI) | payer MEDICAID, SELFPAY ==
--- NOTE | 2023-01-24 13:00 | CT_ITS ---
WS: [id number] CT SINUSES TECHNIQUE: Noncontrast CT of the paranasal sinuses with coronal and sagittal reformatted images. CLINICAL INFORMATION: recurrent sinusitis DLP: 388.[address] scans at [facility] use at least one of these dose optimization techniques: automated e xposure control; mA and/or kV adjustment per patient size (includes targeted exams where dose is matc hed to clinical indication); or iterative reconstruction. FINDINGS: Mild LEFT to RIGHT nasal septal deviation measuring 3-4 mm. Small RIGHT greater than LEFT Megan cell s. Mild narrowing of the ostiomeatal units bilaterally which remain patent with mild mucosal thickeni ng. Hypoplastic frontal sinuses are well aerated. Frontal ethmoidal recesses are patent. Mild mucosal thi ckening in the ethmoid air cells. Maxillary sinuses are well aerated. Sphenoid sinuses are well aerat ed. Mild narrowing of the sphenoid sinus ostia. Partially visualized intracranial contents appear normal. Normal pterygopalatine fossa. Mastoid air c ells well aerated. Normal posterior nasopharynx. Normal parapharyngeal fat. Vascular calcification. CT/CT sinus wo con* [id number] IMPRESSION: 1. Mild LEFT to RIGHT nasal deviation measuring 3 to 4 mm. 2. Paranasal sinuses are well aerated. 3. Mild narrowing of the ostiomeatal units bilaterally with small Megan cells 4. Mild mucosal thickening ethmoid air cells. Hypoplastic frontal sinuses are patent. 5. Maxillary sinuses are well aerated. Mild narrowing along the sphenoid sinus ostia. 6. Mastoid air cells well aerated. 7. Intracranial cavernous carotid vascular calcification prominent for patien t this age. This can be further evaluated with CTA head and neck
== END 2023-01-24 12:36 | disposition home or self-care (01) ==
LOC: RAD 12:38
PROVIDERS: PCP Family Medicine; Visit Provider Family Medicine
DX: J32.9 Chronic sinusitis, unspecified (principal); J34.2 Deviated nasal septum
CPT/HCPCS: 70486

== ENCOUNTER → 2023-02-12 08:17 | Outpatient (BNVA) | payer MEDICAID, SELFPAY | PROVIDERS: PCP Family Medicine; Visit Provider Podiatrist Foot & Ankle Surgery | DX: E11.42 Type 2 diabetes mellitus with diabetic polyneuropathy (principal); M21.41 Flat foot [pes planus] (acquired), right foot; M21.42 Flat foot [pes planus] (acquired), left foot; Z79.84 Long term (current) use of oral hypoglycemic drugs | CPT/HCPCS: 99213 ==

== ENCOUNTER → 2023-02-22 08:11 | Outpatient (BNVA) | payer MEDICAID, SELFPAY | PROVIDERS: PCP Family Medicine; Visit Provider Otolaryngology | DX: J32.9 Chronic sinusitis, unspecified (principal) | CPT/HCPCS: 99203; 99204 ==

== ENCOUNTER → 2023-04-05 08:56 | Outpatient (BNVA) | payer MEDICAID, SELFPAY | PROVIDERS: PCP Family Medicine; Visit Provider Family Medicine | DX: E11.8 Type 2 diabetes mellitus with unspecified complications (principal) | CPT/HCPCS: 80048; 83036 ==

== ENCOUNTER → 2023-05-07 08:22 | Outpatient (BNVA) | payer MEDICAID, SELFPAY | PROVIDERS: PCP Family Medicine; Visit Provider Podiatrist Foot & Ankle Surgery | DX: E11.8 Type 2 diabetes mellitus with unspecified complications (principal); E11.42 Type 2 diabetes mellitus with diabetic polyneuropathy; M21.41 Flat foot [pes planus] (acquired), right foot; M21.42 Flat foot [pes planus] (acquired), left foot; Z79.84 Long term (current) use of oral hypoglycemic drugs | CPT/HCPCS: 99214 ==

== ENCOUNTER 2023-05-24 09:29 | Outpatient (CLI) | payer MEDICAID, SELFPAY ==
[2023-05-24] MEDS: iohexol 350 mg/mL 500 mL Btl (per mL) IV (09:40)
--- NOTE | 2023-05-24 11:00 | CTR_ITS ---
PROCEDURE INFORMATION: Exam: CTA Head With Contrast, Arteriography Exam date and time: 05/24/2023 9:52 AM Age: 47 years old Clinical indication: Condition or disease; Other: Intracranial cavernous carotid vascular calcification TECHNIQUE: Imaging protocol: Computed tomographic angiography of the head with contrast. Exam focused on the arteries. 3D rendering (Not supervised by radiologist): MIP and/or 3D reconstructed images were created by the technologist. Radiation optimization: All CT scans at this facility use at least one of these dose optimization techniques: automated exposure control; mA and/or kV adjustment per patient size (includes targeted exams where dose is matched to clinical indication); or iterative reconstruction. Contrast material: OMNI 350; Contrast volume: 100 ml; Contrast route: INTRAVENOUS (IV); REPORTING DATA: Count of CT and Cardiac NM exams in prior 12 months: This patient has received [address] and 0 known cardiac nuclear medicine studies in the 12 months prior to the current study. COMPARISON: CT sinus wo con* [id number] 01/24/2023 12:48 PM RADIATION DOSE METRICS: Total DLP (mGy-cm): 1490.4 FINDINGS: ANTERIOR CIRCULATION: Right internal carotid artery: Diffuse calcification intracranial segment with mild stenosis. No aneurysm. Right middle cerebral artery: No occlusion or significant stenosis. No aneurysm. Right anterior cerebral artery: No occlusion or significant stenosis. No aneurysm. Left internal carotid artery: Diffuse calcification intracranial segment with mild stenosis. No aneurysm. Left middle cerebral artery: No occlusion or significant stenosis. No aneurysm. Left anterior cerebral artery: No occlusion or significant stenosis. No aneurysm. POSTERIOR CIRCULATION: Right vertebral artery: No occlusion or significant stenosis. No aneurysm. Left vertebral artery: No occlusion or significant stenosis. No aneurysm. Basilar artery: No occlusion or significant stenosis. No aneurysm. Right posterior cerebral artery: No occlusion or significant stenosis. No aneurysm. Left posterior cerebral artery: No occlusion or significant stenosis. No aneurysm. Brain: No definite mass, mass effect, or midline shift. Cerebral ventricles: No ventriculomegaly. Bones/joints: Unremarkable. No acute fracture. Soft tissues: Unremarkable. PROCEDURE INFORMATION: Exam: CTA Neck With Contrast Exam date and time: 05/24/2023 9:52 AM Age: 47 years old Clinical indication: Condition or disease; Other: Intracranial cavernous carotid vascular calcification TECHNIQUE: Imaging protocol: Computed tomographic angiography of the neck with contrast. 3D rendering (Not supervised by radiologist): MIP and/or 3D reconstructed images were created by the technologist. Radiation optimization: All CT scans at this facility use at least one of these dose optimization techniques: automated exposure control; mA and/or kV adjustment per patient size (includes targeted exams where dose is matched to clinical indication); or iterative reconstruction. Contrast material: OMNI 350; Contrast volume: 100 ml; Contrast route: INTRAVENOUS (IV); REPORTING DATA: Count of CT and Cardiac NM exams in prior 12 months: This patient has received [address] and 0 known cardiac nuclear medicine studies in the 12 months prior to the current study. COMPARISON: CT sinus wo con* [id number] 01/24/2023 12:48 PM RADIATION DOSE METRICS: Total DLP (mGy-cm): 1490.4 FINDINGS: Right common carotid artery: No stenosis. No dissection or occlusion. Right internal carotid artery: Calcified plaque right carotid bifurcation with mild stenosis (20-30 %). Remainder of the right ICA is patent to the skull base. Right external carotid artery: No occlusion or stenosis of the origin. Left common carotid artery: No stenosis. No dissection or occlusion. Left internal carotid artery: Calcified plaque left carotid bifurcation with calcified and noncalcified plaque proximal left ICA just distal to the carotid bulb resulting in approximately 40-50% stenosis. Remainder of the left ICA is patent to the skull base. Left external carotid artery: No occlusion or stenosis of the origin. Right vertebral artery: Right vertebral artery is hypoplastic but patent. Left vertebral artery: Left vertebral artery is dominant. Soft tissues: Normal. No significant soft tissue swelling. 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 No acute bony abnormalities. CT/CT angio headneck* [id number] IMPRESSION: 1. No major branch stenosis or occlusion. 2. Diffuse calcification intracranial segment both right and left ICA with mild stenosis. IMPRESSION: 1. Calcified plaque right ICA with mild stenosis (less than 50%). 2. Calcified plaque left ICA with mild stenosis (40-50%). 3. Dominant left vertebral artery. Congenitally hypoplastic right vertebral artery. REFERENCES: NASCET CRITERIA. The degree of stenosis in the cervical segment of the internal carotid artery is based on NASCET criteria. Normal is no stenosis. Mild is less than 50% stenosis. Moderate is 50-69% stenosis. Severe is 70% to 99% stenosis. Total occlusion is no detectable patent lumen.
== END 2023-05-24 09:30 | disposition home or self-care (01) ==
PROVIDERS: PCP Family Medicine; Visit Provider Family Medicine
DX: I67.9 Cerebrovascular disease, unspecified (principal); I65.23 Occlusion and stenosis of bilateral carotid arteries
CPT/HCPCS: 70496; 70498; Q9967

== ENCOUNTER → 2023-05-27 08:18 | Outpatient (BNVA) | payer MEDICAID, SELFPAY | PROVIDERS: PCP Family Medicine; Visit Provider Podiatrist Foot & Ankle Surgery | DX: E11.42 Type 2 diabetes mellitus with diabetic polyneuropathy (principal); M21.41 Flat foot [pes planus] (acquired), right foot; M21.42 Flat foot [pes planus] (acquired), left foot; M76.72 Peroneal tendinitis, left leg; Z79.84 Long term (current) use of oral hypoglycemic drugs | CPT/HCPCS: 99214 ==

== ENCOUNTER → 2023-07-01 09:25 | Outpatient (BNVA) | payer MEDICAID, SELFPAY | PROVIDERS: PCP Family Medicine; Visit Provider Family Medicine | DX: E11.8 Type 2 diabetes mellitus with unspecified complications (principal); Z12.5 Encounter for screening for malignant neoplasm of prostate; F17.219 Nicotine dependence, cigarettes, with unspecified nicotine-induced disorders | CPT/HCPCS: 80053; 80061; 82043; 83036; 85025; G0103 ==

== ENCOUNTER → 2023-07-08 07:54 | Outpatient (BNVA) | payer MEDICAID, SELFPAY | PROVIDERS: PCP Family Medicine; Visit Provider Podiatrist Foot & Ankle Surgery | DX: E11.42 Type 2 diabetes mellitus with diabetic polyneuropathy (principal); M21.41 Flat foot [pes planus] (acquired), right foot; M21.42 Flat foot [pes planus] (acquired), left foot; M76.72 Peroneal tendinitis, left leg; Z79.84 Long term (current) use of oral hypoglycemic drugs | CPT/HCPCS: 99213 ==

== ENCOUNTER 2023-07-25 16:44 | Inpatient (IN) | payer MEDICAID, SELFPAY ==
[2023-07-25 17:36] LABS: Basophils # 0.1 10^3/uL (0.0-0.1); Basophils % 0.3 %; Eosinophils # 0.1 10^3/uL (0.0-0.8); Eosinophils % 0.9 %; Hematocrit 45.3 % (37-53); Lymphocytes # 1.3 10^3/uL (0.8-4.8); Lymphocytes % 8.1 %; Mean Corpuscular Volume 91.3 fl (82-101); Mean Platelet Volume 11.3 fL (7.4-10.4); Monocytes # 1.3 10^3/uL (0.2-0.9); Monocytes % 8.3 %; Neutrophils % 81.9 %; Nucleated Red Blood Cells % 0 %; Platelet Count 212 10^3/cmm (157-399); Red Blood Count 4.96 10^6/uL (3.85-5.65); Red Cell Distribution Width 12.9 % (12.1-15.1); White Blood Count 15.75 10^3/uL (3.29-11.43)
[2023-07-25 17:37] VITALS: BP 136/86; PULSE 100; TEMP 36.8; O2SAT 98; BMI 35.9
[2023-07-25 17:53] LABS: Alanine Aminotransferase 242 U/L (0-41); Albumin Level 4.2 g/dL (3.5-5.2); Alkaline Phosphatase 92 U/L (40-130); Anion Gap 15.3 (5-19); Aspartate Amino Transferase 242 U/L (0-40); Blood Urea Nitrogen 19 mg/dL (6-20); Calcium 9.2 mg/dL (8.5-10.5); Carbon Dioxide 25 mmol/L (22-29); Chloride 101 mmol/L (98-107); Globulin 3.5 g/dL (1.3-4.6); Glomerular Filtration Rate 103.6 mL/min (90-130); Glucose 154 mg/dL (65-115); Osmolality Calculated 289 mOsm/kg (285-295); Potassium 4.3 mmol/L (3.5-5.1); Sodium 137 mmol/L (136-145); Total Bilirubin 1.2 mg/dL (0.15-1.2); Total Protein 7.7 g/dL (6.6-8.7)
[2023-07-25 19:51] LABS: Lipase 3649 U/L (13-60)
--- NOTE | 2023-07-25 20:30 | CTR_ITS ---
PROCEDURE INFORMATION: Exam: CT Abdomen And Pelvis With Contrast Exam date and time: 07/25/2023 9:14 PM Age: 48 years old Clinical indication: Abdominal pain; Localized; Right lower quadrant (rlq); Additional info: Abd pain TECHNIQUE: Imaging protocol: Computed tomography of the abdomen and pelvis with contrast. Radiation optimization: All CT scans at this facility use at least one of these dose optimization techniques: automated exposure control; mA and/or kV adjustment per patient size (includes targeted exams where dose is matched to clinical indication); or iterative reconstruction. Contrast material: OMNI 350; Contrast volume: 100 ml; Contrast route: INTRAVENOUS (IV); REPORTING DATA: Count of CT and Cardiac NM exams in prior 12 months: This patient has received 2 known CTs and 0 known cardiac nuclear medicine studies in the 12 months prior to the current study. COMPARISON: CT abdomen pelvis w con* [id number] 10/22/2021 4:26 AM RADIATION DOSE METRICS: Total DLP (mGy-cm): 1251.03 FINDINGS: Lungs: Emphysematous changes. Bibasilar atelectasis. Coronary arteries: Coronary artery atherosclerotic calcifications. Liver: Hepatic steatosis. Gallbladder and bile ducts: Normal. No calcified stones. No ductal dilation. Pancreas: Mild edema about the pancreatic head, please correlate for pancreatitis. Spleen: Normal. No splenomegaly. Adrenal glands: Normal. No mass. Kidneys and ureters: Perinephric edema bilaterally likely reflecting renal insufficiency, please correlate for pyelonephritis. Stomach and bowel: Prominent fluid in the small bowel without dilation may reflect an enteritis. Appendix: No evidence of appendicitis. Intraperitoneal space: Unremarkable. No free air. No significant fluid collection. Vasculature: Unremarkable. No abdominal aortic aneurysm. Lymph nodes: Unremarkable. No enlarged lymph nodes. Urinary bladder: Unremarkable as visualized. Reproductive: Unremarkable as visualized. Bones/joints: Unremarkable. No acute fracture. Soft tissues: Unremarkable. CT/CT abdomen pelvis w con* [id number] IMPRESSION: 1. Prominent fluid in the small bowel without dilation may reflect an enteritis. 2. Mild edema about the pancreatic head, please correlate for pancreatitis. 3. Perinephric edema bilaterally likely reflecting renal insufficiency, please correlate for pyelonephritis. 4. Coronary artery atherosclerotic calcifications. 5. Emphysematous changes. 6. Bibasilar atelectasis. 7. Hepatic steatosis.
--- NOTE | 2023-07-25 20:49 | W.ED.ABDPA2 ---
HPI - Abdominal Pain General: Chief Complaint: Abdominal Pain Stated Complaint: right sided abdominal pain Time Seen by Provider: 07/25/23 20:09 History of Present Illness: 48-year-old male presents emergency room with upper abdominal pain within the past 12 hours. Patient described as sharp sensation with severity of 7 out of 10 mostly around the right upper quadrant and epigastric area. Patient with some nausea and vomiting this morning upon waking up. Denies vomiting blood or coughing up blood. No fever, chills, sick contacts or foreign travel. Current alcohol abuse. Associated Symptoms: Reports nausea and vomiting; Denies chills, dysuria and fever(s) Review of Systems General: Reports: 10 or more systems reviewed and unremarkable except in HPI and below Const: Denies: fever(s), chills, body aches or change in appetite Resp: Denies: dyspnea, productive cough, non-productive cough, wheezing, pain on inspiration or change in phlegm color GI: Reports: abdominal pain, nausea and vomiting : Denies: flank pain, difficulty urinating, dysuria, urinary frequency, urinary urgency, urinary hesitancy, urinary dribbling, difficulty starting urination, change in urine stream or nocturia PFSH ED PFSH: Medical History Abdominal pain in male Acute pharyngitis Foot ulcer due to secondary DM left great toe with last surgical debridement 11/13/2019 Nicotine dependence, cigarettes, with unspecified nicotine-induced disorders Pancreatitis Post herpetic neuralgia Smoker Type 2 diabetes mellitus with complications Surgical History History of eye surgery left eye History of hand surgery right hand History of knee surgery right knee History of toe surgery left great toe surgical debridement 11/13/2019 Family History Grandmother Diabetes Social History Smoking and tobacco status: current every day smoker cigarettes Packs smoked per day: 0.75 Alcohol intake: current Alcohol intake frequency: holidays/special occasions only Substance/Drug Use: never Physical Exam Const: COMMON NORMALS: no acute distress, average body habitus, patient oriented x3, no limitations, healthy appearing, alert and well nourished Chest: COMMONS NORMALS: normal inspection of the chest, normal palpation of entire chest wall, normal inspection of the breasts and normal palpation of the breasts Breast/axilla inspection: Yes normal inspection of the breasts BREAST/AXILLA PALPATION: Yes normal palpation of the breasts GI: COMMON NORMALS: Soft to palpation AUSCULTATION: Yes normoactive bowel sounds PALPATION: Yes Soft to palpation, Yes Tenderness to palpation present (GI) Details: RUQ and other (epigastric ), No Guarding due to palpation present (GI) and No Ascites present PERCUSSION: normal to percussion : COMMON NORMALS: Yes no CVA tenderness BLADDER/KIDNEY EXAM: Yes no CVA tenderness Back/Pelvis: COMMON NORMALS: no CVA tenderness, thoracic and lumbar spine normal to inspection, no thoracic nor lumbar tenderness, thoraco-lumbar ROM normal and straight leg raise negative bilaterally Neuro: COMMON NORMALS: patient oriented x3 SENSORIUM/ORIENTATION: Yes alert Psych: COMMON NORMALS: mental status grossly normal, Normal thought process present, cooperative, normal affect, speech normal, activity/motor behavior normal, denies hallucinations, denies homicidal ideation and denies suicidal ideation SPEECH: Yes normal speech THOUGHT PROCESS: Normal thought process present Course Vital Signs: Vital signs: Vital Signs Temperature 97.5 F L 07/27/23 12:12 Pulse Rate 78 07/27/23 12:12 Respiratory Rate 18 07/27/23 12:12 Blood Pressure 148/94 07/27/23 12:12 Pulse Oximetry 100 07/27/23 12:12 Oxygen Delivery Me thod Room Air 07/27/23 11:34 MDM - Abdominal Pain Medical Decision Making Patient made comfortable emergency room. Patient was given pain medication, IV fluid and had a CT scan, CBC, lipase and CMP done. Remained stable emergency with any acute distress. Discussed patient with the hospitalist. Lab Data 07/27/23 04:54 07/27/23 04:54 Labs/Radiology: Radiology Impressions Abdomen/Pelvis CT 07/25/23 20:30 IMPRESSION: 1. Prominent fluid in the small bowel without dilation may reflect an enteritis. 2. Mild edema about the pancreatic head, please correlate for pancreatitis. 3. Perinephric edema bilaterally likely reflecting renal insufficiency, please correlate for pyelonephritis. 4. Coronary artery atherosclerotic calcifications. 5. Emphysematous changes. 6. Bibasilar atelectasis. 7. Hepatic steatosis. Laboratory Results WBC 15.75 10^3/uL (3.29-11.43) H 07/25/23 17:14 RBC 4.96 10^6/uL (3.85-5.65) 07/25/23 17:14 Hgb 15.40 g/dL (11.27-16.99) 07/25/23 17:14 Hct 45.3 % (37-53) 07/25/23 17:14 MCV 91.3 fl (82-101) 07/25/23 17:14 MCH 31.0 pg (27-33) 07/25/23 17:14 MCHC 34.0 g/dL (30-55) 07/25/23 17:14 RDW 12.9 % (12.1-15.1) 07/25/23 17:14 Plt Count 212 10^3/cmm (157-399) 07/25/23 17:14 MPV 11.3 fL (7.4-10.4) H 07/25/23 17:14 Neut % (Auto) 81.9 % 07/25/23 17:14 Lymph % (Auto) 8.1 % 07/25/23 17:14 Morrison % (Auto) 8.3 % 07/25/23 17:14 Eos % (Auto) 0.9 % 07/25/23 17:14 Baso % (Auto) 0.3 % 07/25/23 17:14 Neut # (Auto) 12.90 10^3/uL (1.8-7.7) H 07/25/23 17:14 Lymph # (Auto) 1.3 10^3/uL (0.8-4.8) 07/25/23 17:14 Morrison # (Auto) 1.3 10^3/uL (0.2-0.9) H 07/25/23 17:14 Eos # (Auto) 0.1 10^3/uL (0.0-0.8) 07/25/23 17:14 Baso # (Auto) 0.1 10^3/uL (0.0-0.1) 07/25/23 17:14 Nucleated RBC % (auto) 0 % 07/25/23 17:14 Nucleated RBCs # 0.0 /100WBC 07/25/23 17:14 Sodium 137 mmol/L (136-145) 07/25/23 17:14 Potassium 4.3 mmol/L (3.5-5.1) 07/25/23 17:14 Chloride 101 mmol/L (98-107) 07/25/23 17:14 Carbon Dioxide 25 mmol/L (22-29) 07/25/23 17:14 Anion Gap 15.3 (5-19) 07/25/23 17:14 BUN 19 mg/dL (6-20) 07/25/23 17:14 Creatinine 0.8 mg/dL (0.7-1.2) 07/25/23 17:14 GFR Calculation 103.6 mL/min (90-130) 07/25/23 17:14 Glucose 154 mg/dL (65-115) H 07/25/23 17:14 Calculated Osmolality 289 mOsm/kg (285-295) 07/25/23 17:14 Calcium 9.2 mg/dL (8.5-10.5) 07/25/23 17:14 Total Bilirubin 1.2 mg/dL (0.15-1.2) 07/25/23 17:14 AST 242 U/L (0-40) H 07/25/23 17:14 ALT 242 U/L (0-41) H 07/25/23 17:14 Alkaline Phosphatase 92 U/L (40-130) 07/25/23 17:14 Total Protein 7.7 g/dL (6.6-8.7) 07/25/23 17:14 Albumin 4.2 g/dL (3.5-5.2) 07/25/23 17:14 Globulin 3.5 g/dL (1.3-4.6) 07/25/23 17:14 Lipase 3649 U/L (13-60) H 07/25/23 17:14 All radiology interpretation(s) finalized by discharge ED provider radiology interpretation(s): CT scan done in the ER. Discharge Plan Discharge Patient Disposition: Placed in Observation Admit Provider: Anh Dallas Clinical Impression: Acute pancreatitis, Abdominal pain, Leukocytosis Discharge Diet: GI Soft Discharge Activity: Resume usual activity Coding Level of Care Code ED Lead Software Qa Engineer for Carlosg Barbie
[2023-07-25 20:56] VITALS: RESP 18
[2023-07-25] MEDS: sodium chloride 0.9% 1,000 ML 999 ML IV ×2 (20:56→22:39)
[2023-07-25] MEDS: pantoprazole 40 mg SDV IVP (20:56)
[2023-07-25] MEDS: ondansetron 2 mg/ML SDV 2 mL 4 MG IVP (20:56)
[2023-07-25] MEDS: morphine 4 mg/mL SDV 1 mL IVP (20:56)
[2023-07-25] MEDS: iohexol 350 mg/mL 500 mL Btl (per mL) IV (21:19)
[2023-07-25 21:36] VITALS: BP 111/78; PULSE 94; O2SAT 100
--- NOTE | 2023-07-25 21:43 | PC.NURSE ---
Report called to BOB Harris on Med-Surg. All questions and concerns addressed at time of report.
[2023-07-25] MEDS: piperacillin-tazobactam 3.375 GM in sodium chloride 0.9% (plus) 50 ML IV (21:50)
--- NOTE | 2023-07-25 22:44 | PM.HP ---
Providers/Chief Complaint Admitting Physician: Anh Dallas MD Primary Care Provider: Polly Wells DO Chief Complaint: right sided abdominal pain History of Present Illness Joe Child is a 48 year old male morbidly obese with history of dyslipidemia type 2 diabetes acute pancreatitis presented with complaint of epigastric pain nausea and vomiting since this a.m. He reports pain is 8/10, in epigastric area cramping radiating to back aggravated by meals and no relieving factors. In ER he received IV morphine x1 which relieved the pain, but was found to have serum lipase of 3600 with elevated LFTs and mild leukocytosis 15.9. He denies any fever cough cold diarrhea or urinary complaints he has a history of pancreatitis 3 years ago. He denies active alcohol abuse. He reports eating fried chicken for consecutive 3 days. Review of Systems Narrative: As per HPI Medications/Allergies Home Medications Medication Instructions Recorded Confirmed Last Taken Type cetirizine 10 mg tablet (Zyrtec) 10 mg PO DAILY #30 tabs 01/04/23 07/25/23 Unknown Rx fluticasone propionate 50 2 spray intranasal DAILY #16 grams 01/04/23 07/25/23 Unknown Rx mcg/actuation nasal spray,suspension (Flonase Allergy Relief) diabetic shoes with 3 inserts #1 ea 01/07/23 07/25/23 Unknown Rx atorvastatin 40 mg tablet 40 mg PO DAILY #90 tabs 07/02/23 07/25/23 Unknown Rx metformin 1,000 mg tablet See Rx Instructions .Route 07/02/23 07/25/23 Unknown Rx .COMPLEX #180 tabs Allergies Allergy/AdvReac Type Severity Reaction Status Date / Time No Known Allergies Allergy Verified 07/25/23 17:41 PFSH Acute PFSH: Medical History Abdominal pain in male Acute pharyngitis Foot ulcer due to secondary DM left great toe with last surgical debridement 11/13/2019 Nicotine dependence, cigarettes, with unspecified nicotine-induced disorders Pancreatitis Post herpetic neuralgia Smoker Type 2 diabetes mellitus with complications Surgical History History of eye surgery left eye History of hand surgery right hand History of knee surgery right knee History of toe surgery left great toe surgical debridement 11/13/2019 Family History Grandmother Diabetes Social History Smoking and tobacco status: current every day smoker cigarettes Packs smoked per day: 0.75 Alcohol intake: current Alcohol intake frequency: holidays/special occasions only Substance/Drug Use: never Vitals/I&O/Wt Last Vital Signs Temp 98.2 F 07/25/23 17:37 Pulse 94 07/25/23 21:36 Resp 18 07/25/23 20:56 BP 111/78 07/25/23 21:36 Pulse Ox 100 07/25/23 21:36 O2 Del Method Room Air 07/25/23 22:15 07/25/23 07/25/23 07/25/23 06:59 14:59 22:59 Intake Total 1050 / 1050 Balance 1050 / 1050 Weight last 48 hrs Weight 127.006 kg Physical Exam Narrative: He is alert awake oriented x3 not in acute distress morbidly obese Chest clear to auscultation bilaterally Cardiovascular normal heart sounds regular rhythm Abdomen soft diffusely tender distended normal bowel sounds Extremities no pedal edema noted Data 07/25/23 17:14 07/25/23 17:14 CT Abd/Pel: Radiologist's impression: IMPRESSION: 1. ? Prominent fluid in the small bowel without dilation may reflect an enteritis. 2. ? Mild edema about the pancreatic head, please correlate for pancreatitis. 3. ? Perinephric edema bilaterally likely reflecting renal insufficiency, please correlate for pyelonephritis. 4. ? Coronary artery atherosclerotic calcifications. 5. ? Emphysematous changes. 6. ? Bibasilar atelectasis. 7. ? Hepatic steatosis. A&P Assessment and plan (1) Abdominal pain: (2) Leukocytosis: (3) Acute pancreatitis: Plan 48-year-old male morbidly obese dyslipidemia diabetes presented with complaint of nausea vomiting and severe abdominal pain since 1 day, found to have elevated lipase LFTs and WBC count and CT abdomen consistent with acute pancreatitis and enteritis secondary to ingestion of outside food. We will keep n.p.o. except medications for now IV fluids normal saline at 75 mL/h IV morphine 2 mg every 4 hours as needed for pain control IV Pepcid 20 mg every 12 hours Will check urine analysis and stool studies Subcutaneous Lovenox 40 mg daily for DVT prophylaxis Resume home medications Recheck labs in a.m. He is full code for now Attestations Medical Necessity Statement*: He needs hospitalization for 2 days for IV fluids and management of acute pancreatitis Time Spent in Patient Care: 30 minutes Coding Level of Care Code Acute Code for Chg Fwd Diagnoses Abdominal pain R10.9 Leukocytosis D72.829 Acute pancreatitis K85.90 Time Spent (min) 30
[2023-07-25 22:52] VITALS: BP 123/75; PULSE 88; RESP 18; TEMP 36.9; O2SAT 98
[2023-07-25] MEDS: enoxaparin 40 mg/0.4 mL Syringe SUBCUT (23:52)
[2023-07-25] MEDS: famotidine 20 mg/2 mL INJ IVP (23:52)
[2023-07-25] MEDS: sodium chloride 0.9% 1,000 ML 75 ML IV (23:52)
[2023-07-26] VITALS (7 sets, daily range): BP systolic 110–131; BP diastolic 70–85; PULSE 77–88; RESP 16–19; TEMP 36.3–37.1; O2SAT 94–98
[2023-07-26 05:36] LABS: Basophils % 0.4 %; Eosinophils # 0.1 10^3/uL (0.0-0.8); Eosinophils % 1.4 %; Hematocrit 41.6 % (37-53); Lymphocytes # 1.5 10^3/uL (0.8-4.8); Lymphocytes % 14.6 %; Mean Corpuscular HGB Conc 33.9 g/dL (30-55); Mean Corpuscular Hemoglobin 31.2 pg (27-33); Mean Platelet Volume 10.5 fL (7.4-10.4); Monocytes # 0.7 10^3/uL (0.2-0.9); Monocytes % 7.2 %; Neutrophils # 7.74 10^3/uL (1.8-7.7); Nucleated Red Blood Cells % 0 %; Platelet Count 180 10^3/cmm (157-399); Red Blood Count 4.52 10^6/uL (3.85-5.65); White Blood Count 10.17 10^3/uL (3.29-11.43)
[2023-07-26 05:55] LABS: Alanine Aminotransferase 216 U/L (0-41); Albumin Level 3.5 g/dL (3.5-5.2); Alkaline Phosphatase 78 U/L (40-130); Anion Gap 10.4 (5-19); Aspartate Amino Transferase 125 U/L (0-40); Blood Urea Nitrogen 17 mg/dL (6-20); Calcium 8.4 mg/dL (8.5-10.5); Carbon Dioxide 26 mmol/L (22-29); Chloride 104 mmol/L (98-107); Globulin 2.7 g/dL (1.3-4.6); Glomerular Filtration Rate 103.6 mL/min (90-130); Glucose 105 mg/dL (65-115); Osmolality Calculated 284 mOsm/kg (285-295); Potassium 4.4 mmol/L (3.5-5.1); Sodium 136 mmol/L (136-145); Total Bilirubin 1.4 mg/dL (0.15-1.2); Total Protein 6.2 g/dL (6.6-8.7)
[2023-07-26 05:56] LABS: Alanine Aminotransferase 215 U/L (0-41); Albumin Level 3.5 g/dL (3.5-5.2); Alkaline Phosphatase 80 U/L (40-130); Aspartate Amino Transferase 126 U/L (0-40); Globulin 3.2 g/dL (1.3-4.6); Total Bilirubin 1.4 mg/dL (0.15-1.2); Total Protein 6.7 g/dL (6.6-8.7)
[2023-07-26 06:01] LABS: Amylase 542 U/L (28-100)
[2023-07-26 06:04] LABS: Lipase 937 U/L (13-60)
[2023-07-26] MEDS: metformin 500 mg Tablet 1000 MG PO (08:42)
[2023-07-26 10:07] LABS: C Reactive Protein 60.7 mg/L (0.0-4.9); Triglycerides 47 mg/dL (0-150)
[2023-07-26 10:13] LABS: Procalcitonin 2.54 ng/mL (0-0.5)
--- NOTE | 2023-07-26 10:23 | PC.CHAP ---
Pastoral Care Encounter/Spiritual Assessment Type of Contact [x] Declined editor map visit [] Patient/Family/Request visit [] Outpatient visit [] Follow-up visit [] Physician referral [] Code/Alert [] Routine visit [] Staff referral [] Actively dying [] Patient sleeping [] Family support [] [] Out of room [] Palliative care [] [] Receiving care in room [] Pre-surgical visit [] Trauma [] Long length of stay [] ICU visit [] Other: Relational/Emotional Strength [] Patient feels connected with others/family/visitors/staff [] Distress [] Loneliness/isolation [] Abandonment Spirituality of Patient [] Person of Shannan [] Attends Anabaptism of their Shannan [] Believes in Prayer [] Reads Bible or Mu-Ism materials [x] There are Spiritual issues to be addressed Basket Turner Interventions [] Prayer [] Active listening [] Non-anxious presence [] Spiritual/emotional support [] Crisis/trauma care [] Spiritual counseling [] Bereavement support [] Provided bereavement packet [] Provided Bible/devotional materials [] Provided toy/stuffed animal, coloring book to patient or family member [] Provided Communion [] Anointing/[place] [] Salvation [x] Completed spiritual assessment [] Other: Impact on Illness or Injury [] Angry [] Fearful [] Anxious [] Often cries [] Exhaustion [] Unable to work [] Unable to attend gnosticist [] Unable to walk/stand [] Unable to read [] Unable to drive [] Unable to eat/drink [] Unable to sleep [] Unable to be with family [] Patient intubated [] Other: Summary Time spent with patient
[2023-07-26] MEDS: famotidine 20 mg/2 mL INJ IVP (10:27)
--- NOTE | 2023-07-26 11:21 | US_ITS ---
WS: [id number] RIGHT UPPER QUADRANT ULTRASOUND HISTORY: ruq, pancreatitis COMPARISON: CT abdomen 07/25/2023. Liver: 14.9 cm in length. Normal size liver and echogenicity. No bile duct dilatation or mass. Portal Vein: Normal hepatopetal flow with monophasic waveform. Gallbladder: Normally distended gallbladder. There are stones and sludge within the gallbladder with mild gallbladder wall thickening measuring up to 8 mm. No pericholecystic fluid. CBD: 0.4 cm Pancreas: Limited visualization. Normal as visualized. Right kidney: 12.6 cm in length. Normal size and echogenicity. No hydronephrosis or mass. Aorta and IVC: Unremarkable abdominal aorta and IVC. No ascites. IMPRESSION: 1. Cholelithiasis and sludge with mild gallbladder wall thickening. No pericholecystic fluid. Finding s are most consistent with acute cholecystitis. 2. No bile duct dilatation.
[2023-07-26 11:41] LABS: Glucose Point of Care 105 mg/dL (70-110)
[2023-07-26] MEDS: pantoprazole 40 mg SDV IVP ×2 (12:04→22:46)
[2023-07-26] MEDS: nicotine 14 mg Patch 1 PATCH TRANSDERMA (12:06)
--- NOTE | 2023-07-26 15:40 | P.PN_ITS ---
Subjective Subjective: Patient was seen this morning, he tells me that he is very hungry, he continues to have epigastric discomfort, he is very upset that he is not allowed to eat with his pancreatitis, he has a desire to eat, he wants to leave the hospital, he wants to smoke, I had extensive discussion with patient about acute pancreatitis, the etiology is uncertain at this time he denies any history of alcoholism, he has not had a drink of alcohol in over 6 months, no history of steroid use, no trauma, no new medications, his triglycerides are within normal limits, he does report that this all started a few days ago when he had fried chicken, he is never had gallbladder issues but does have some right upper quadrant discomfort thereafter, we will do a gallbladder assessment right upper quadrant ultrasound, I had extensive discussion about pancreatitis, will continue, on fluids, pain control, nausea control slowly advance his diet for now we will keep him on clears, I discussed the morbidity and mortality associate with leaving the hospital AGAINST MEDICAL ADVICE, morbidity and mortality associated with not following her instructions, rapidly progressing his diet in people of pancreatitis, morbidity or mortality associated with pancreatitis, I am worried that if we rapidly advance his diet, he will have worsening abdominal pain, can possibly develop acute necrotizing pancreatitis, third spacing, morbidity mortality associate with severe pancreatitis, and the need for TPN, he voiced understanding all questions answered, he agreed to stay in the hospital, would like a nicotine patch, I advance his diet to clears we will order a right upper quadrant ultrasound Vitals/I&O/Wt Last Vital Signs Temp 98.1 F 07/26/23 15:20 Pulse 82 07/26/23 15:20 Resp 16 07/26/23 15:20 BP 131/85 07/26/23 15:20 Pulse Ox 98 07/26/23 15:20 O2 Del Method Room Air 07/26/23 15:20 07/26/23 07/26/23 07/26/23 06:59 14:59 22:59 Intake Total 999 1000 / 999 Balance 999 1000 / 1000 Weight last 48 hrs Weight 127.006 kg Physical Exam Const: COMMON NORMALS: no acute distress and patient oriented x3 Resp: COMMON NORMALS: normal respiratory effort, No retractions, No use of accessory muscles and clear to auscultation bilaterally AUSCULTATION: clear to auscultation bilaterally Cardio: COMMON NORMALS: regular rate, regular rhythm, S1 normal heart sound present and S2 normal heart sound present RATE: regular rate RHYTHM: regular rhythm HEART SOUNDS: S1 normal heart sound present and S2 normal heart sound present GI: OTHER: Abdomen soft, distended, good bowel sounds in all 4 quadrants, does have right upper quadrant tenderness Extremity: COMMON NORMALS: no pedal edema Neuro: COMMON NORMALS: patient oriented x3 Psych: COMMON NORMALS: mental status grossly normal Data 07/26/23 04:01 07/26/23 04:01 A&P Assessment and plan (1) Abdominal pain: (2) Leukocytosis: (3) Acute pancreatitis: Acute pancreatitis -Clear liquids -Morphine for pain control -Zofran for nausea -IV fluids -Insulin sliding scale for diabetes -Right upper quadrant ultrasound -Continue Rocephin -Serial abdominal exams -Trend lipase, amylase CT scan did make a mention of perinephric edema bilaterally, will obtain a UA, continue Rocephin Full code, Lovenox for DVT prophylaxis Plan Patient was seen this morning, he tells me that he is very hungry, he continues to have epigastric discomfort, he is very upset that he is not allowed to eat with his pancreatitis, he has a desire to eat, he wants to leave the hospital, he wants to smoke, I had extensive discussion with patient about acute pancreatitis, the etiology is uncertain at this time he denies any history of alcoholism, he has not had a drink of alcohol in over 6 months, no history of steroid use, no trauma, no new medications, his triglycerides are within normal limits, he does report that this all started a few days ago when he had fried chicken, he is never had gallbladder issues but does have some right upper quadrant discomfort thereafter, we will do a gallbladder assessment right upper quadrant ultrasound, I had extensive discussion about pancreatitis, will demond bautista, on fluids, pain control, nausea control slowly advance his diet for now we will keep him on clears, I discussed the morbidity and mortality associate with leaving the hospital AGAINST MEDICAL ADVICE, morbidity and mortality associated with not following her instructions, rapidly progressing his diet in people of pancreatitis, morbidity or mortality associated with pancreatitis, I am worried that if we rapidly advance his diet, he will have worsening abdominal pain, can possibly develop acute necrotizing pancreatitis, third spacing, morbidity mortality associate with severe pancreatitis, and the need for TPN, he voiced understanding all questions answered, he agreed to stay in the hospital, would like a nicotine patch, I advance his diet to clears we will order a right upper quadrant ultrasound Attestations Medical Necessity Statement*: Patient requires hospitalization for acute pancreatitis Diagnoses Abdominal pain R10.9 Leukocytosis D72.829 Acute pancreatitis K85.90
[2023-07-26] MEDS: cefTRIAXone 1,000 MG in sodium chloride 0.9% (plus) 50 ML 100 MG IV (15:58)
[2023-07-26 16:39] LABS: Glucose Point of Care 90 mg/dL (70-110)
[2023-07-26 20:38] LABS: Glucose Point of Care 118 mg/dL (70-110)
[2023-07-26] MEDS: enoxaparin 40 mg/0.4 mL Syringe SUBCUT (22:46)
[2023-07-26] MEDS: sodium chloride 0.9% 1,000 ML 100 ML IV (22:46)
[2023-07-27 03:18] LABS: Add Urine Microscopic? NO; Charge for UA Resulting for Rev
[2023-07-27 03:25] LABS: Bilirubin Urine Neg (Negative); Blood Urine Neg (Negative); Glucose Urine UA Norm (Normal); Ketones Urine Negative (Negative); Leukocyte Esterase Urine Negative (Negative); Nitrate Urine Negative (Negative); Protein Urine Neg (Negative); Urine Appearance Clear (CLEAR); Urine Color Yellow (Yellow); Urobilinogen Urine Neg (Negative); pH Urine 7 (5-7)
[2023-07-27 03:56] VITALS: BP 122/69; PULSE 70; RESP 17; TEMP 37; O2SAT 95
[2023-07-27 05:14] LABS: Basophils # 0.1 10^3/uL (0.0-0.1); Basophils % 0.8 %; Eosinophils # 0.2 10^3/uL (0.0-0.8); Eosinophils % 2.9 %; Hematocrit 41.3 % (37-53); Lymphocytes # 2.2 10^3/uL (0.8-4.8); Lymphocytes % 29.7 %; Mean Corpuscular HGB Conc 33.7 g/dL (30-55); Mean Corpuscular Hemoglobin 31.3 pg (27-33); Mean Platelet Volume 11.2 fL (7.4-10.4); Monocytes # 0.7 10^3/uL (0.2-0.9); Monocytes % 9.5 %; Neutrophils # 4.29 10^3/uL (1.8-7.7); Neutrophils % 56.8 %; Nucleated Red Blood Cells % 0 %; Platelet Count 185 10^3/cmm (157-399); Red Blood Count 4.44 10^6/uL (3.85-5.65); White Blood Count 7.55 10^3/uL (3.29-11.43)
[2023-07-27 05:42] LABS: C Reactive Protein 112.9 mg/L (0.0-4.9)
[2023-07-27 05:45] LABS: Alanine Aminotransferase 142 U/L (0-41); Albumin Level 3.5 g/dL (3.5-5.2); Alkaline Phosphatase 77 U/L (40-130); Anion Gap 13.4 (5-19); Aspartate Amino Transferase 60 U/L (0-40); Blood Urea Nitrogen 12 mg/dL (6-20); Calcium 8.6 mg/dL (8.5-10.5); Carbon Dioxide 24 mmol/L (22-29); Chloride 106 mmol/L (98-107); Globulin 2.8 g/dL (1.3-4.6); Glomerular Filtration Rate 103.6 mL/min (90-130); Glucose 89 mg/dL (65-115); Osmolality Calculated 287 mOsm/kg (285-295); Potassium 4.4 mmol/L (3.5-5.1); Sodium 139 mmol/L (136-145); Total Bilirubin 0.9 mg/dL (0.15-1.2); Total Protein 6.3 g/dL (6.6-8.7)
[2023-07-27 05:50] LABS: Procalcitonin 0.62 ng/mL (0-0.5)
[2023-07-27 05:54] LABS: Lipase 445 U/L (13-60)
[2023-07-27 07:58] VITALS: BP 135/88; PULSE 79; RESP 18; TEMP 36.5; O2SAT 95
--- NOTE | 2023-07-27 08:01 | PC.NURSE ---
stool specimen ordered but pt has not had BM during hospital stay. Discussed this with pt who states it is not abnormal for him to go a week without having BM. Confirmed that he is passing flatus.
[2023-07-27 08:42] LABS: Glucose Point of Care 112 mg/dL (70-110)
[2023-07-27] MEDS: nicotine 14 mg Patch 1 PATCH TRANSDERMA (08:48)
[2023-07-27] MEDS: piperacillin-tazobactam 3.375 GM in sodium chloride 0.9% (plus) 50 ML IV (09:16)
[2023-07-27] MEDS: sodium chloride 0.9% 1,000 ML 100 ML IV (09:16)
[2023-07-27 10:51] LABS: Glucose Point of Care 117 mg/dL (70-110)
--- NOTE | 2023-07-27 10:52 | P.DS_ITS ---
Discharge Providers Date of Admission: 07/25/23 20:53 Date of Discharge: July 27, 2023 Attending Provider at Admission: Anh Dallas MD Attending Provider at Discharge: David Esqueda MD Primary Care Provider: Polly Wells DO Diagnoses at Discharge Discharge Diagnosis (1) Abdominal pain: Status: Acute (2) Leukocytosis: Status: Acute (3) Acute pancreatitis: Status: Acute Reason for Visit Reason for Visit: right sided abdominal pain Hospital Course Hospital Course Joe Child is a 48 year old male morbidly obese with history of dyslipidemia type 2 diabetes acute pancreatitis presented with complaint of epigastric pain nausea and vomiting since this a.m.? He reports pain is 8/10, in epigastric area cramping radiating to back aggravated by meals and no relieving factors. In ER he received IV morphine x1 which relieved the pain, but was found to have serum lipase of 3600 with elevated LFTs and mild leukocytosis 15.9.? He denies any fever cough cold diarrhea or urinary complaints he has a history of pancreatitis 3 years ago.? He denies active alcohol abuse.? He reports eating fried chicken for consecutive 3 days. This is a 48-year-old male who presented to [facility] for nausea vomiting abdominal pain diagnosed with acute pancreatitis on admission, medically managed, n.p.o., IV fluids, pain control, underwent gallbladder u ltrasound finding with acute cholecystitis, CBD 0.4 cm, gallbladder wall thickening 8 mm, no intra or extrahepatic biliary dilatation, overall patient clinically improved, remained afebrile, likely patient had acute gallstone pancreatitis with passage of gallstone, does have cholelithiasis. Spoke to general surgery, recommended p.o. antibiotics on discharge, low-fat diet, with a close follow-up with general surgery as outpatient for consideration of surgical intervention. On discharge patient was alert oriented x3, following all commands, no significant nausea, vomiting, no abdominal pain, tolerating a full liquid diet well. I will discharge on 10 remaining days of p.o. antibiotics. I will discharge him on a low-fat diet. Patient was advised to follow-up with his primary care provider 1 week. Follow-up with general surgery 2 weeks. If he were to have any recurrent abdominal pain, nausea vomiting, to go to the emergency room. I had extensive discussion with him about the life-threatening nature of acute cholecystitis, or acute ascending cholangitis, the concerns for gallstones getting lodged in the biliary tract and morbidity and mortality associated. If he were to have any developing symptomatology such as nausea, vomiting, abdominal pain, jaundice to go immediately to the emergency room. He voiced understanding, all questions answered, smoking cessation counseling. Physical Exam Const: COMMON NORMALS: no acute distress and patient oriented x3 Resp: COMMON NORMALS: normal respiratory effort, No retractions, No use of accessory muscles and clear to auscultation bilaterally AUSCULTATION: clear to auscultation bilaterally Cardio: COMMON NORMALS: regular rate, regular rhythm, S1 normal heart sound present and S2 normal heart sound present RATE: regular rate RHYTHM: regular rhythm HEART SOUNDS: S1 normal heart sound present and S2 normal hea rt sound present GI: COMMON NORMALS: Normal to inspection, nondistended, normoactive bowel sounds present and non-tender Extremity: COMMON NORMALS: no pedal edema Neuro: COMMON NORMALS: patient oriented x3 Psych: COMMON NORMALS: mental status grossly normal Discharge Data Studies Completed and Pending Completed Studies During Hospitalization Category Date Time Status CT abdomen pelvis w con* [id number] Stat Cat Scan 07/25/23 20:30 Completed US gall bladder [id number] Stat Ultrasound 07/26/23 11:21 Completed Pending at discharge Category Date Time Status C Reactive Protein AM LABS Lab 07/28/23 04:00 Ordered C Reactive Protein AM LABS Lab 07/29/23 04:00 Ordered Clostridium Difficile PCR Routine Lab 07/25/23 22:58 Ordered Complete Blood Count w/Auto AM LABS Lab 07/28/23 04:00 Ordered Complete Blood Count w/Auto AM LABS Lab 07/29/23 04:00 Ordered Immunochemical Fecal OCB Routine Lab 07/25/23 22:58 Ordered Lactoferrin Routine Lab 07/25/23 22:58 Ordered Lipase AM LABS Lab 07/28/23 04:00 Ordered Lipase AM LABS Lab 07/29/23 04:00 Ordered OVA and Parasites, Conc and PE Routine Lab 07/25/23 22:58 Ordered Procalcitonin AM LABS Lab 07/28/23 04:00 Ordered Procalcitonin AM LABS Lab 07/29/23 04:00 Ordered Salmonella / Shigella / Campy Routine Lab 07/25/23 22:58 Ordered Radiology Impressions Abdomen/Pelvis CT 07/25/23 20:30 IMPRESSION: 1. Prominent fluid in the small bowel without dilation may reflect an enteritis. 2. Mild edema about the pancreatic head, please correlate for pancreatitis. 3. Perinephric edema bilaterally likely reflecting renal insufficiency, please correlate for pyelonephritis. 4. Coronary artery atherosclerotic calcifications. 5. Emphysematous changes. 6. Bibasilar atelectasis. 7. Hepatic steatosis. Laboratory Results WBC 7.55 10^3/uL (3.29-11.43) 07/27/23 04:54 RBC 4.44 10^6/uL (3.85-5.65) 07/27/23 04:54 Hgb 13.90 g/dL (11.27-16.99) 07/27/23 04:54 Hct 41.3 % (37-53) 07/27/23 04:54 MCV 93.0 fl (82-101) 07/27/23 04:54 MCH 31.3 pg (27-33) 07/27/23 04:54 MCHC 33.7 g/dL (30-55) 07/27/23 04:54 RDW 13.0 % (12.1-15.1) 07/27/23 04:54 Plt Count 185 10^3/cmm (157-399) 07/27/23 04:54 MPV 11.2 fL (7.4-10.4) H 07/27/23 04:54 Neut % (Auto) 56.8 % 07/27/23 04:54 Lymph % (Auto) 29.7 % 07/27/23 04:54 [place] % (Auto) 9.5 % 07/27/23 04:54 Eos % (Auto) 2.9 % 07/27/23 04:54 Baso % (Auto) 0.8 % 07/27/23 04:54 Neut # (Auto) 4.29 10^3/uL (1.8-7.7) 07/27/23 04:54 Lymph # (Auto) 2.2 10^3/uL (0.8-4.8) 07/27/23 04:54 [place] # (Auto) 0.7 10^3/uL (0.2-0.9) 07/27/23 04:54 Eos # (Auto) 0.2 10^3/uL (0.0-0.8) 07/27/23 04:54 Baso # (Auto) 0.1 10^3/uL (0.0-0.1) 07/27/23 04:54 Nucleated RBC % (auto) 0 % 07/27/23 04:54 Nucleated RBCs # 0.0 /100WBC 07/27/23 04:54 Sodium 139 mmol/L (136-145) 07/27/23 04:54 Potassium 4.4 mmol/L (3.5-5.1) 07/27/23 04:54 Chloride 106 mmol/L (98-107) 07/27/23 04:54 Carbon Dioxide 24 mmol/L (22-29) 07/27/23 04:54 Anion Gap 13.4 (5-19) 07/27/23 04:54 BUN 12 mg/dL (6-20) 07/27/23 04:54 Creatinine 0.8 mg/dL (0.7-1.2) 07/27/23 04:54 GFR Calculation 103.6 mL/min (90-130) 07/27/23 04:54 Glucose 89 mg/dL (65-115) 07/27/23 04:54 POC Glucose 117 mg/dL (70-110) H 07/27/23 10:42 Calculated Osmolality 287 mOsm/kg (285-295) 07/27/23 04:54 Calcium 8.6 mg/dL (8.5-10.5) 07/27/23 04:54 Total Bilirubin 0.9 mg/dL (0.15-1.2) 07/27/23 04:54 Direct Bilirubin 0.50 mg/dL (0.00-0.30) H 07/26/23 04:01 AST 60 U/L (0-40) H 07/27/23 04:54 ALT 142 U/L (0-41) H 07/27/23 04:54 Alkaline Phosphatase 77 U/L (40-130) 07/27/23 04:54 C-Reactive Protein 112.9 mg/L (0.0-4.9) H 07/27/23 04:54 Total Protein 6.3 g/dL (6.6-8.7) L 07/27/23 04:54 Albumin 3.5 g/dL (3.5-5.2) 07/27/23 04:54 Globulin 2.8 g/dL (1.3-4.6) 07/27/23 04:54 Triglycerides 47 mg/dL (0-150) 07/26/23 04:01 Amylase 542 U/L (28-100) H* 07/26/23 04:01 Lipase 445 U/L (13-60) H 07/27/23 04:54 Procalcitonin 0.62 ng/mL (0-0.5) H 07/27/23 04:54 Urine Color Yellow (Yellow) 07/27/23 03:00 Urine Appearance Clear (CLEAR) 07/27/23 03:00 Urine pH 7 (5-7) 07/27/23 03:00 Ur Specific [facility] [place] 1.000 (1.005-1.030) L 07/27/23 03:00 Urine Protein Neg (Negative) 07/27/23 03:00 Urine Glucose (UA) Norm (Normal) 07/27/23 03:00 Urine Ketones Negative (Negative) 07/27/23 03:00 Urine Blood Neg (Negative) 07/27/23 03:00 Urine Nitrate Negative (Negative) 07/27/23 03:00 Urine Bilirubin Neg (Negative) 07/27/23 03:00 Urine Urobilinogen Neg mg/dL (Negative) 07/27/23 03:00 Ur Leukocyte Esterase Negative (Negative) 07/27/23 03:00 Vitals Last Vital Signs Temp 97.7 F 07/27/23 07:58 Pulse 79 07/27/23 07:58 Resp 18 07/27/23 07:58 BP 135/88 07/27/23 07:58 Pulse Ox 95 07/27/23 07:58 O2 Del Method Room Air 07/27/23 07:58 Discharge Plan Discharge Patient Disposition: Home Condition: Stable Prescriptions: New ciprofloxacin HCl 500 mg tablet 500 mg PO Q12H 10 Days Qty: 20 0RF metronidazole 500 mg tablet 500 mg PO Q8H 10 Days Qty: 30 0RF Continued cetirizine [Zyrtec] 10 mg tablet 10 mg PO DAILY Qty: 30 5RF fluticasone propionate [Flonase Allergy Relief] 50 mcg/actuation spray,suspension 2 spray intranasal DAILY Qty: 16 5RF Rx Instructions: administer into each nostril (DME) diabetic shoes with 3 inserts See Rx Instructions .Route .MEDSUPPLY Qty: 1 0RF Rx Instructions: As directed metformin 1,000 mg tablet See Rx Instructions .ROUTE .COMPLEX Qty: 180 1RF Dose Instruction: TAKE ONE TABLET BY MOUTH TWICE DAILY Rx Instructions: TAKE ONE TABLET BY MOUTH TWICE DAILY atorvastatin 40 mg tablet 40 mg PO DAILY Qty: 90 3RF Rx Instructions: At Bedtime Discharge Orders: Discharge Order (Routine); Ordered 07/27/23 Ordered By: David Esqueda Referrals: Cruzito Garibay MD [Physician] - 2 weeks Polly Wells DO [Primary Care Provider] - 4-7 days (appointment on 08/12/23 at 11:30) Discharge Diet: GI Soft Discharge Activity: Resume usual activity Patient Instructions: How to Stop Smoking (DC), Cholecystitis (GEN), Pancreatitis (DC), Low Fat Diet (DC), Cigarette Smoking and Your Health (GEN), Laparoscopic Cholecystectomy (DC), Opioid Safety Discharge Attestations Time Spent in Discharge Care*: greater than 30 min Time Spent in Smoking Cessation: 3 to 10 minutes Quality Metrics Clinical Quality Measures [ No reported AMI, CVA or VTE this stay] Coding Level of Care Code 01123 Total time (in minutes) for Discharge: 45 Diagnoses Abdominal pain R10.9 Leukocytosis D72.829 Acute pancreatitis K85.90
[2023-07-27 11:34] VITALS: BP 148/94; PULSE 78; RESP 18; TEMP 36.4; O2SAT 100
[2023-07-27 12:12] VITALS: BP 148/94; PULSE 78; RESP 18; TEMP 36.4; O2SAT 100
== END 2023-07-27 12:13 | disposition home or self-care (01) | DRG 440 ==
LOC: ER 20:53 → MEDSURG 07-26 06:24
PROVIDERS: Emergency Medicine; Admitting Provider Internal Medicine; Emergency Provider Family Medicine; PCP Family Medicine; Visit Provider Family Medicine
DX: K85.90 Acute pancreatitis without necrosis or infection, unspecified (principal); E11.9 Type 2 diabetes mellitus without complications; Z79.84 Long term (current) use of oral hypoglycemic drugs; F17.210 Nicotine dependence, cigarettes, uncomplicated; E78.5 Hyperlipidemia, unspecified; D72.829 Elevated white blood cell count, unspecified; E66.9 Obesity, unspecified; Z68.35 Body mass index [BMI] 35.0-35.9, adult
CPT/HCPCS: 36415; 36416; 74177; 76705; 80053; 80076; 81003; 82150; 82962; 83690; 84145; 84478; 85025; 86140; 93005; 96372; C9113; J0696; J1650; J2270; J2405; J2543; J3490; J7030; Q9967

== ENCOUNTER → 2023-07-31 14:52 | Outpatient (BNVA) | payer MEDICAID, SELFPAY | PROVIDERS: PCP Family Medicine; Referring Provider Family Medicine; Visit Provider Surgery | DX: K81.9 Cholecystitis, unspecified (principal) | CPT/HCPCS: 99203 ==

== ENCOUNTER → 2023-08-05 14:26 | Outpatient (BNVA) | payer MEDICAID, SELFPAY | PROVIDERS: PCP Family Medicine; Visit Provider Family Medicine | DX: K85.90 Acute pancreatitis without necrosis or infection, unspecified (principal) | CPT/HCPCS: 80053 ==

== ENCOUNTER → 2023-08-28 10:00 | Outpatient (BNVA) | payer MEDICAID, SELFPAY | PROVIDERS: PCP Family Medicine; Visit Provider Podiatrist Foot & Ankle Surgery | DX: Z51.89 Encounter for other specified aftercare (principal); E11.42 Type 2 diabetes mellitus with diabetic polyneuropathy; M21.41 Flat foot [pes planus] (acquired), right foot; M21.42 Flat foot [pes planus] (acquired), left foot; M76.72 Peroneal tendinitis, left leg; L97.521 Non-pressure chronic ulcer of other part of left foot limited to breakdown of skin; E11.621 Type 2 diabetes mellitus with foot ulcer; Z79.84 Long term (current) use of oral hypoglycemic drugs | CPT/HCPCS: 99213 ==

== ENCOUNTER 2023-09-16 05:37 | Day surgery (SDC) | payer MEDICAID, SELFPAY ==
[2023-09-16] VITALS (10 sets, daily range): BP systolic 95–120; BP diastolic 62–90; PULSE 70–82; RESP 10–21; TEMP 36–36.7; O2SAT 91–98; BMI 35.3
[2023-09-16] MEDS: sodium chloride 0.9% 1,000 ML 30 ML IV (06:12)
[2023-09-16 06:50] LABS: Glucose Point of Care 147 mg/dL (70-110)
--- NOTE | 2023-09-16 06:53 | PM.HP ---
Providers/Chief Complaint Primary Care Provider: Polly Wells DO Chief Complaint: 84453 K81.9 History of Present Illness Joe Child is a 48 year old male Review of Systems General: Reports: 10 or more systems reviewed and unremarkable except in HPI and below Medications/Allergies Home Medications Medication Instructions Recorded Confirmed Last Taken Type diabetic shoes with 3 inserts #1 ea 01/07/23 09/16/23 09/15/23 Rx atorvastatin 40 mg tablet 40 mg PO BEDTIME 09/13/23 09/16/23 09/15/23 History cetirizine 10 mg tablet 10 mg PO DAILY 09/13/23 09/16/23 09/15/23 History metformin 1,000 mg tablet 1,000 mg PO BID 09/13/23 09/16/23 09/15/23 History Allergies Allergy/AdvReac Type Severity Reaction Status Date / Time metronidazole [From Flagyl] Allergy Cause Verified 09/16/23 06:04 Heart to pound ciprofloxacin AdvReac Mild LIGHT Verified 09/16/23 06:04 HEADEDNESS/CONFUSION PFSH Acute PFSH: Medical History Abdominal pain in male Acute pharyngitis Foot ulcer due to secondary DM left great toe with last surgical debridement 11/13/2019 Nicotine dependence, cigarettes, with unspecified nicotine-induced disorders Pancreatitis Post herpetic neuralgia Smoker Type 2 diabetes mellitus with complications Surgical History History of eye surgery left eye History of hand surgery right hand History of knee surgery right knee History of toe surgery left great toe surgical debridement 11/13/2019 Family History Grandmother Diabetes Social History Smoking and tobacco/nicotine status: current every day tobacco/nicotine user cigarettes Packs smoked per day: 0.75 Alcohol intake: current Alcohol intake frequency: holidays/special occasions only Substance/Drug Use: never Vitals/I&O/Wt Last Vital Signs Temp 96.8 F L 09/16/23 06:07 Pulse 80 09/16/23 06:07 Resp 16 09/16/23 06:07 BP 120/90 09/16/23 06:07 Pulse Ox 98 11/06/23 06:07 O2 Del Method Room Air 09/16/23 06:07 Weight last 48 hrs Weight 275 lb 6.4 oz Physical Exam Narrative: General : Patient is well developed , no acute distress, oriented x3 Head : Normal cephalic, a-traumatic. Ears : Pinnae and external canal are normal. Hearing is normal. Eyes : PERRLA, Sclera and injection are normal. No conjunctival discharge. Nose : Mucous membranes are without erythema. Throat : buccal mucosa is normal, gums are without significant recession or hypertrophy. Lungs : Equal chest rise bilaterally, no use of accessory muscles, trachea is midline. Cor : Rate and rhythm are normal. Abdomen : Soft, ND, NT, no g/r/m Extremities : No edema, no cyanosis or clubbing, dorsalis pedis pulses are present bilaterally, non-tender to palpation of calves. Upper extremities are normal bilaterally. Back : non-tender to palpation, no CVA tenderness. Neuro : CN II - XII intact, Upper and lower extremities have equal and full strength A&P Assessment and plan (1) Cholecystitis: Plan Laparoscopic cholecystectomy Attestations Medical Necessity Statement*: Home Coding Level of Care Code Acute Code for [facility] Diagnoses Cholecystitis K81.9
[2023-09-16] MEDS: ceFAZolin 2,000 MG in sodium chloride 0.9% (plus) 50 ML 100 MG IV (06:56)
[2023-09-16] MEDS: lidocaine-epi 2% 20 mL INJ INJECTION (07:23)
--- NOTE | 2023-09-16 07:46 | P.OP_ITS ---
Operative Report Date of procedure: September 16, 2023 Pre-op diagnosis: Cholecystitis Post-op diagnosis: same Procedure done: Laparoscopic cholecystectomy Implants: None Specimens removed/disposition: Gallbladder Surgeon: Ruddy Alford DO Anesthesia: General Estimated blood loss (mL): 5 Complications: None apparent Brief History: This a very pleasant 48-year-old gentleman who had an episode of acute cholecystitis that was treated conservatively with antibiotics. He comes in today for interval cholecystectomy. There is some benefits were explained and documented. Procedure: Patient was wheeled into the operative room and placed on the OR table in a supine position. Abdomen was inspected prepped and draped in usual sterile fashion. Time-out was performed and all present were in agreement. A 15 blade scalp was used to make a stab incision in the left upper quadrant and intra- abdominal insufflation was achieved using a Veress needle. After localizing the tissue incisions were made and a 5 millimeter trocar was placed into the umbilicus as well as 2 in the right upper quadrant. A 12 millimeter trocar was placed in the epigastrium. Gallbladder was grasped and elevated. The triangle of Calot was carefully dissected using blunt dissection and electrocautery until the triangle of Calot clearly identified. The cystic duct was clipped proximally and double clipped distally. The duct was then ligated proximally. The cystic artery was doubly clipped and ligated. The gallbladder was then removed from the liver bed using electrocautery. The gallbladder was removed from the abdomen using an Endo-Catch bag through the epigastric incision. The liver bed was inspected and no bleeding was seen. The abdomen was irrigated and suctioned. All ports removed. Skin was washed and dried. Incisions were closed with 4-0 Monocryl in a subcuticular interrupted fashion. Skin glue was applied. Patient tolerated the procedure well.
--- NOTE | 2023-09-16 08:40 | ANES.PREANE2 ---
Pre-Anesthetic Assessment Height/Weight: Height 1.88 m Weight 124.919 kg Temp Pulse Resp BP Pulse Ox O2 Del Method O2 Flow Rate 97.0 F L 75 16 102/67 92 Room Air 6 09/16/23 08:39 09/16/23 08:39 09/16/23 08:39 09/16/23 08:39 09/16/23 08:39 09/16/23 08:39 09/16/23 08:05 Operation Date: 09/16/23 07:00 Proposed Procedures p [id number] lap mynor K81.9(Not Applicable) - Ruddy Alford DO Familial anesthetic complications: none Was Beta Seema taken within 24 hours: N/A Was Clonidine taken within 24 hours: N/A Last intake: Intake Last Liquid Date 09/15/23 Last Liquid Time 23:30 Last Solid Date 09/15/23 Last Solid Time 21:30 Social Tobacco and No alcohol Exam alert, oriented x 3, clear to auscultation bilaterally and regular rate & rhythm Airway Submandibular: within normal limits Cervical ROM: within normal limits Mallampati: Class II Dentition: chipped Pulmonary Chronic Obstructive Pulmonary Disease Metabolic Diabetes Mellitus, Hyperlipidemia and Morbid Obesity Neuropsych Neuropathy Anesthetic Plan ASA status: 3 Anesthesia: General Medications/Allergies Home Medications Medication Instructions Recorded Confirmed Last Taken Type diabetic shoes with 3 inserts #1 ea 01/07/23 09/16/23 09/15/23 Rx atorvastatin 40 mg tablet 40 mg PO BEDTIME 09/13/23 09/16/23 09/15/23 History cetirizine 10 mg tablet 10 mg PO DAILY 09/13/23 09/16/23 09/15/23 History metformin 1,000 mg tablet 1,000 mg PO BID 09/13/23 09/16/23 09/15/23 History docusate sodium 100 mg capsule 100 mg PO BID #14 caps 09/16/23 Unknown Rx (Colace) hydrocodone 10 mg-acetaminophen 1 tab PO Q6H PRN pain #20 tabs 09/16/23 Unknown Rx 325 mg tablet Allergies Allergy/AdvReac Type Severity Reaction Status Date / Time metronidazole [From Flagyl] Allergy Cause Verified 09/16/23 06:04 Heart to pound ciprofloxacin AdvReac Mild LIGHT Verified 09/16/23 06:04 HEADEDNESS/CONFUSION Current Medications Generic Name Dose Route Start Last Admin Trade Name Freq PRN Reason Stop Dose Admin Sodium Chloride 1,000 mls @ 30 mls/hr 09/16/23 06:00 09/16/23 06:12 Sodium Chloride 0.9% IV 09/17/23 05:59 30 mls/hr .Q24H AUBRIE Administration PFSH Anesthesia Medical History Abdominal pain in male Acute pharyngitis Foot ulcer due to secondary DM left great toe with last surgical debridement 11/13/2019 Nicotine dependence, cigarettes, with unspecified nicotine-induced disorders Pancreatitis Post herpetic neuralgia Smoker Type 2 diabetes mellitus with complications Surgical History History of eye surgery left eye History of hand surgery right hand History of knee surgery right knee History of toe surgery left great toe surgical debridement 11/13/2019 Family History Grandmother Diabetes Social History Smoking and tobacco/nicotine status: current every day tobacco/nicotine user cigarettes Packs smoked per day: 0.75 Alcohol intake: current Alcohol intake frequency: holidays/special occasions only Substance/Drug Use: never Data Anesthesia Cardiac Studies: No Data to Display
[2023-09-16] MEDS: HYDROcodone-acetaminophen 10-325 mg Tablet 1 TAB PO (09:05)
[2023-09-16] MEDS: ondansetron 2 mg/ML SDV 2 mL 4 MG IVP (09:18)
--- NOTE | 2023-09-16 16:12 | ANE.PACU2 ---
Inpatient post-anesthesia follow up: Airway intact: Yes Vital signs: Temperature 97.0 F Pulse Rate 74 Respiratory Rate 18 Blood Pressure 103/69 Pulse Oximetry 93 Oxygen Delivery Me thod Room Air Oxygen Flow Rate 6 Fraction of Inspir ed Oxygen Hydration adequate: Yes Nausea and vomiting: No Pain level: 3 Mental status: Baseline
== END 2023-09-16 09:32 | disposition home or self-care (01) ==
PROVIDERS: PCP Family Medicine; Visit Provider Surgery
PROC: 0FT44ZZ Resection of Gallbladder, Percutaneous Endoscopic Approach (ICD-10-PCS; CPT 47562; principal; 2023-09-16 07:00)
DX: K80.10 Calculus of gallbladder with chronic cholecystitis without obstruction (principal); J44.9 Chronic obstructive pulmonary disease, unspecified; E78.5 Hyperlipidemia, unspecified; E66.01 Morbid (severe) obesity due to excess calories; E11.40 Type 2 diabetes mellitus with diabetic neuropathy, unspecified; F17.200 Nicotine dependence, unspecified, uncomplicated; F17.218 Nicotine dependence, cigarettes, with other nicotine-induced disorders
CPT/HCPCS: 47562; 36416; 82962; 88304; J0131; J0690; J1100; J1885; J2250; J2371; J2405; J2704; J3010; J3490; J7030

== ENCOUNTER → 2023-09-30 09:50 | Outpatient (BNVA) | payer MEDICAID, SELFPAY | PROVIDERS: PCP Family Medicine; Visit Provider Family Medicine | DX: E11.8 Type 2 diabetes mellitus with unspecified complications (principal) | CPT/HCPCS: 83036 ==

== ENCOUNTER → 2023-10-01 07:40 | Outpatient (BNVA) | payer MEDICAID, SELFPAY | PROVIDERS: PCP Family Medicine; Visit Provider Surgery | DX: Z90.49 Acquired absence of other specified parts of digestive tract (principal); Z98.890 Other specified postprocedural states | CPT/HCPCS: 99024 ==

== ENCOUNTER → 2023-10-08 09:10 | Outpatient (BNVA) | payer MEDICAID, SELFPAY | PROVIDERS: PCP Family Medicine; Visit Provider Podiatrist Foot & Ankle Surgery | DX: E11.42 Type 2 diabetes mellitus with diabetic polyneuropathy (principal); M21.41 Flat foot [pes planus] (acquired), right foot; M21.42 Flat foot [pes planus] (acquired), left foot; Z79.84 Long term (current) use of oral hypoglycemic drugs | CPT/HCPCS: 99213 ==

== ENCOUNTER → 2023-12-27 08:32 | Outpatient (BNVA) | payer MEDICAID, SELFPAY | PROVIDERS: PCP Family Medicine; Visit Provider Family Medicine | DX: E11.8 Type 2 diabetes mellitus with unspecified complications (principal) | CPT/HCPCS: 80053; 83036 ==

== ENCOUNTER → 2024-01-08 14:39 | Outpatient (BNVA) | payer MEDICAID, SELFPAY | PROVIDERS: PCP Family Medicine; Visit Provider Podiatrist Foot & Ankle Surgery | DX: E11.42 Type 2 diabetes mellitus with diabetic polyneuropathy (principal); M21.41 Flat foot [pes planus] (acquired), right foot; M21.42 Flat foot [pes planus] (acquired), left foot; Z79.84 Long term (current) use of oral hypoglycemic drugs | CPT/HCPCS: 99213 ==

== ENCOUNTER → 2024-03-17 10:24 | Outpatient (BNVA) | payer MEDICAID, SELFPAY | PROVIDERS: PCP Family Medicine; Visit Provider Family Medicine | DX: E11.8 Type 2 diabetes mellitus with unspecified complications (principal); Z13.6 Encounter for screening for cardiovascular disorders | CPT/HCPCS: 80053; 83036 ==

== ENCOUNTER 2024-07-03 09:09 | Outpatient (CLI) | payer MEDICAID, SELFPAY ==
--- NOTE | 2024-07-03 09:16 | XR_ITS ---
WS: [id number] Lumbar spine, 3 views, 07/03/2024 Clinical Data: chronic lower back pain Comparison: None. Findings: No compression fractures or subluxation is seen. No disc space narrowing is seen. The transverse proc esses and SI joints are normal. There is a levoscoliosis. There are anterior osteoarthritic spurs at all lumbar vertebral bodies. The re are right upper quadrant cholecystectomy clips. XR/XR lumbar spine 2-3V* [id number] Impression: Levoscoliosis with moderate osteoarthritic spurs.
--- NOTE | 2024-07-03 09:16 | XR_ITS ---
WS: [id number] Cervical spine, 3 views, 07/03/2024 Clinical Data: neck pain Comparison: None. Findings: No compression fractures are seen. The disc heights are normal. There is no prevertebral so ft tissue swelling. The odontoid is unremarkable. The soft tissues of the neck show bilateral carotid bifurcation calcifications. XR/XR cervical spine 3V* [id number] Impression: Negative cervical spine.
== END 2024-07-03 09:10 | disposition home or self-care (01) ==
LOC: RAD 09:10
PROVIDERS: Visit Provider Pediatrics
DX: M41.86 Other forms of scoliosis, lumbar region (principal); E11.8 Type 2 diabetes mellitus with unspecified complications; R53.83 Other fatigue; M25.78 Osteophyte, vertebrae; I65.23 Occlusion and stenosis of bilateral carotid arteries
CPT/HCPCS: 72040; 72100; 80053; 80061; 82728; 83036; 83550

== ENCOUNTER → 2024-09-23 09:39 | Outpatient (BNVA) | payer MEDICAID, SELFPAY | PROVIDERS: Visit Provider Podiatrist Foot & Ankle Surgery | DX: E11.42 Type 2 diabetes mellitus with diabetic polyneuropathy (principal); M21.41 Flat foot [pes planus] (acquired), right foot; M21.42 Flat foot [pes planus] (acquired), left foot; B35.3 Tinea pedis; S90.812A Abrasion, left foot, initial encounter; X58.XXXA Exposure to other specified factors, initial encounter; Z79.84 Long term (current) use of oral hypoglycemic drugs | CPT/HCPCS: 99213 ==

== ENCOUNTER → 2024-09-24 13:23 | Outpatient (BNVA) | payer MEDICAID, SELFPAY | DX: E11.8 Type 2 diabetes mellitus with unspecified complications (principal) | CPT/HCPCS: 83036 ==

== ENCOUNTER → 2024-10-14 06:57 | Outpatient (BNVA) | payer MEDICAID, SELFPAY | PROVIDERS: Visit Provider Podiatrist Foot & Ankle Surgery | DX: B35.3 Tinea pedis (principal); E11.42 Type 2 diabetes mellitus with diabetic polyneuropathy; M21.41 Flat foot [pes planus] (acquired), right foot; M21.42 Flat foot [pes planus] (acquired), left foot; Z79.84 Long term (current) use of oral hypoglycemic drugs | CPT/HCPCS: 99213 ==

== ENCOUNTER → 2024-12-14 11:37 | Outpatient (BNVA) | payer MEDICAID, SELFPAY | DX: E11.42 Type 2 diabetes mellitus with diabetic polyneuropathy (principal) | CPT/HCPCS: 80053; 83036 ==

== ENCOUNTER → 2025-01-06 13:39 | Outpatient (BNVA) | payer MEDICAID, SELFPAY | PROVIDERS: Visit Provider Podiatrist Foot & Ankle Surgery | DX: E11.8 Type 2 diabetes mellitus with unspecified complications (principal); E11.42 Type 2 diabetes mellitus with diabetic polyneuropathy; M21.41 Flat foot [pes planus] (acquired), right foot; M21.42 Flat foot [pes planus] (acquired), left foot; Z79.84 Long term (current) use of oral hypoglycemic drugs | CPT/HCPCS: 99213 ==

== ENCOUNTER 2025-03-31 10:09 | Outpatient (CLI) | payer MEDICAID, SELFPAY ==
--- NOTE | 2025-03-31 10:15 | XRR_ITS ---
PROCEDURE INFORMATION: Exam: XR Cervical Spine Exam date and time: 03/31/2025 10:55 AM Age: 49 years old Clinical indication: Neck pain; Shock through both sides of neck into shoulders. 3-5 times a day for the past 10-12 days. TECHNIQUE: Imaging protocol: Radiologic exam of the cervical spine. Views: 2 or 3 views. COMPARISON: CR XR cervical spine 3V* [id number] 07/03/2024 9:18 AM FINDINGS: Bones/joints: No acute fracture. Vertebral body heights are maintained. Spinal alignment is preserved. Straightening of cervical lordosis. Mild bilateral facet arthropathy at multiple levels. Soft tissues: Unremarkable. Vasculature: Vascular calcifications of bilateral carotid bulbs. XR/XR cervical spine 3V* [id number] IMPRESSION: 1. No acute osseous findings. 2. Straightening of the cervical lordosis can be seen with muscle spasm. 3. Vascular calcifications of the carotid bulbs. Findings could be further assessed with carotid artery Doppler if warranted.
== END 2025-03-31 10:10 | disposition home or self-care (01) ==
LOC: LAB 10:11 → RAD 10:14
DX: M47.892 Other spondylosis, cervical region (principal); E11.8 Type 2 diabetes mellitus with unspecified complications; R93.7 Abnormal findings on diagnostic imaging of other parts of musculoskeletal system; I65.23 Occlusion and stenosis of bilateral carotid arteries
CPT/HCPCS: 72040; 80053; 80061; 83036; 83550; 85025

== ENCOUNTER 2025-04-14 07:35 | Outpatient (CLI) | payer MEDICAID, SELFPAY ==
--- NOTE | 2025-04-14 08:00 | US_ITS ---
WS: [id number] ULTRASOUND ABDOMEN CLINICAL INFORMATION: possible inguinal hernia FINDINGS: Liver Size: Normal. Craniocaudal length: 13.7 cm. Echogenicity: Fatty Surface nodularity: None. Mass (size and location): None. Bile ducts Intrahepatic ducts: Normal. Common bile duct diameter: 0.3 cm. Gallbladder Cholecystectomy Pancreas Not visualized Spleen Splenomegaly: None. Craniocaudal length: 10.0 cm. Right kidney: Normal. Hydronephrosis: None. Size: 11.5 cm x 7.8 cm x 4.8 cm Left kidney: Normal. Hydronephrosis: None. Size: 12.6 cm x 5.7 cm x 5.9 cm. Abdominal aorta and IVC Visualized portions are normal. Ascites: None. US/US abdomen complete* [id number] IMPRESSION: Technically difficult study due to bowel gas and body habitus 1. Cholecystectomy. 2. Fatty liver. 3. Pancreas not visualized. 4. Kidneys not well visualized but no evidence of hydronephrosis. 5. No evidence of inguinal hernia.
== END 2025-04-14 07:36 | disposition home or self-care (01) ==
DX: R10.31 Right lower quadrant pain (principal); Z90.49 Acquired absence of other specified parts of digestive tract; K76.0 Fatty (change of) liver, not elsewhere classified
CPT/HCPCS: 76700

== ENCOUNTER 2025-04-16 08:34 | Outpatient (CLI) | payer MEDICAID, SELFPAY ==
--- NOTE | 2025-04-16 09:30 | USCV_ITS ---
Joe Child Age: 49 Gender: M : 1975 Exam Date: 04/16/2025 09:24 Ordering Phys: Adriana Begum NP Technologist: ROYA Exam Location: [facility] – [place] Indication: calcifications seen on xray Risk Factors: Previous Vascular Surgery: Right Brachial BP: / Left Brachial BP: / Right Left Velocity (cm/s) Spectral Plaque Velocity (cm/s) Spectral Plaque Syst/Diast Broadening Syst/Diast Broadening 82.60/ 20.30 Prox CCA 78.60 / 16.90 93.60/ 24.70 Mid CCA 92.80 / 25.00 76.10/ 19.20 Distal CCA 63.60 / 18.10 51.00/ 19.40 Prox ICA 58.70 / 25.00 68.70/ 29.60 Mid ICA 64.00 / 24.90 66.60/ 28.90 Distal ICA 56.20 / 22.80 70.90 ECA 67.60 0.70 ICA/CCA 0.90 Antegrade Vertebral Antegrade 18.00/ 6.80 cm/s 32.10/ 16.40 cm/s Tri Subclavian Tri 63.10 98.30 CONCLUSIONS Right ICA stenosis <50%. Mild atheromatous plaque right carotid bulb/ICA. Left ICA stenosis <50%. Mild atheromatous plaque left carotid bulb/ICA. Intimal thickening in the common carotid arteries and internal carotid arteries bilaterally. Normal antegrade Doppler flow noted in the right vertebral artery. Normal antegrade Doppler flow noted in the left vertebral artery. Esteban Lux MD (Electronically Signed) Final Date: 16 April 2025 11:47 S
== END 2025-04-16 08:35 | disposition home or self-care (01) ==
DX: I65.23 Occlusion and stenosis of bilateral carotid arteries (principal)
CPT/HCPCS: 93880

== ENCOUNTER → 2025-06-30 14:25 | Outpatient (BNVA) | payer MEDICAID, SELFPAY | PROVIDERS: Visit Provider Podiatrist Foot & Ankle Surgery | DX: E11.42 Type 2 diabetes mellitus with diabetic polyneuropathy (principal); M21.41 Flat foot [pes planus] (acquired), right foot; M21.42 Flat foot [pes planus] (acquired), left foot; Z79.84 Long term (current) use of oral hypoglycemic drugs | CPT/HCPCS: 99213 ==

== ENCOUNTER → 2025-10-19 06:49 | Outpatient (BNVA) | payer MEDICAID, SELFPAY | PROVIDERS: Visit Provider Podiatrist Foot & Ankle Surgery | DX: E11.8 Type 2 diabetes mellitus with unspecified complications (principal); E11.42 Type 2 diabetes mellitus with diabetic polyneuropathy; M21.41 Flat foot [pes planus] (acquired), right foot; M21.42 Flat foot [pes planus] (acquired), left foot; Z79.84 Long term (current) use of oral hypoglycemic drugs | CPT/HCPCS: 99213 ==